=== PATIENT | male | born 1995 | race Caucasian/White ===

== ENCOUNTER 2024-07-15 14:15 | Emergency (ER) | payer BC, SELFPAY ==
[2024-07-15 14:32] VITALS: BP 162/95; PULSE 71; RESP 17; TEMP 36.4; O2SAT 99
--- NOTE | 2024-07-15 16:34 | ED.GENADULT ---
HPI - General Adult General Chief complaint: Anxiety Stated complaint: anxiety Time Seen by Provider: 07/15/24 15:00 History of Present Illness HPI narrative: This is a 28-year-old male presenting with chief complaint of anxiety. Patient did mushrooms several months ago. While he did then he had a panic attack. Since then he has continued to have recurrent panic attacks and has increased anxiety. He is okay during the day but is particularly bad at night when he tries to sleep. He has not seen a primary care physician and has appointment on August 23. No SI or HI. No other symptoms. Related Data Allergies Allergy/AdvReac Type Severity Reaction Status Date / Time No Known Allergies Allergy Verified 07/15/24 15:21 [facility] Social History Social History Substance use type: marijuana Exam Narrative: APPEARANCE: No apparent distress. Anxious appearing A&O x3 Head: atraumatic. EYES: EOMI, NOSE: Atraumatic NECK: Trachea midline RESPIRATORY: No increased rate of breathing clear to auscultation CARDIOVASCULAR: RRR, ABDOMINAL: Non-distended MUSCULOSKELETAl: No obvious deformities NEURO: Alert. Moving 4/4 extremities SKIN:: Warm, dry. Normal color PSYCHIATRIC: Anxious Course Vital Signs Vital signs: Vital Signs Temperature 97.6 F 07/15/24 14:32 Pulse Rate 71 07/15/24 14:32 Respiratory Rate 17 07/15/24 14:32 Blood Pressure 162/95 H 07/15/24 14:32 Pulse Oximetry 99 07/15/24 14:32 Oxygen Delivery Room Air 07/15/24 14:32 Temperature 97.6 F 07/15/24 14:32 Pulse Rate 71 07/15/24 14:32 Respiratory Rate 17 07/15/24 14:32 Blood Pressure 162/95 H 07/15/24 14:32 Pulse Oximetry 99 07/15/24 14:32 Oxygen Delivery Room Air 07/15/24 14:32 Medical Decision Making [facility] Narrative Medical decision making narrative: -Course: 28-year-old male presenting with recurrent panic attacks. Given 5 mg IM Valium. Discharged on hydroxyzine. Instructed follow-up with PCP and given hydroxyzine. Given resources at [facility]. -DDX includes but is not limited to: Anxiety, panic disorder, drug-induced anxiety -Interventions: 5 mg IM Valium -Shared decision making / Disposition: Discharge -RX hydroxyzine Vital Signs Vital Signs: Vital Signs Temperature 97.6 F 07/15/24 14:32 Pulse Rate 71 07/15/24 14:32 Respiratory Rate 17 07/15/24 14:32 Blood Pressure 162/95 H 07/15/24 14:32 Pulse Oximetry 99 07/15/24 14:32 Oxygen Delivery Room Air 07/15/24 14:32 Temperature 97.6 F 07/15/24 14:32 Pulse Rate 71 07/15/24 14:32 Respiratory Rate 17 07/15/24 14:32 Blood Pressure 162/95 H 07/15/24 14:32 Pulse Oximetry 99 07/15/24 14:32 Oxygen Delivery Room Air 07/15/24 14:32 Discharge Plan Discharge Clinical Impression: Acute anxiety, Panic disorder Patient Disposition: Home, Self-Care Condition: Stable Instructions: Antibiotic Form, Anxiety (ED) Additional Instructions: Please follow-up with your primary care physician. Please reach out to chest not mental health facility to try to arrange psychiatric follow-up. You can use hydroxyzine for anxiety and panic disorder. Please return if you develop thoughts of harming yourself or others. Prescriptions: New hydroxyzine HCl 50 mg tablet 50 mg PO BID Qty: 60 0RF Follow-up/Referrals: Valerie Randall MD [Primary Care Provider] - 1 Week (ED F/U - Anxiety w/ panic disorder)
[2024-07-15] MEDS: diazePAM INJ (*CRX) 10 MG/2 ML SYRINGE 5 MG IM (16:40)
== END 2024-07-15 16:57 | disposition home or self-care (01) ==
PROVIDERS: Emergency Provider Emergency Medicine; PCP Family Medicine
DX: F41.0 Panic disorder [episodic paroxysmal anxiety] (principal)
CPT/HCPCS: 96372; 99283; J3360

== ENCOUNTER 2024-10-22 11:02 | Inpatient (IN) | payer BC, SELFPAY ==
--- NOTE | ~2024-10-22 | CT_ITS ---
CLINICAL INDICATION: Abdominal pain COMPARISON: None. TECHNIQUE: Multiple contiguous axial images of the abdomen and pelvis were performed without the admi nistration of intravenous contrast The dose-length product (DLP) was 1371.77 mGy-cm. Automated exposure control and iterative reconstruction technique were employed. FINDINGS/OBSERVATIONS: Visualized lower thorax: The bilateral lung bases are clear. The heart is of normal size, without pericardial effusion. Liver: The liver demonstrates homogeneous attenuation and is not enlarged measuring 18 cm in longitudinal di mension. Gallbladder and biliary system: The gallbladder is only minimally distended, and otherwise unremarkable. Pancreas: Limited evaluation of the pancreas secondary to the lack of intravenous contrast. Spleen: The spleen demonstrates homogeneous attenuation and is not enlarged measuring 8 cm in longitudinal di mension. Kidneys: The bilateral kidneys are unremarkable, without hydronephrosis or renal calculi. Adrenal glands: Unremarkable. Gastrointestinal tract: Multiple diverticula in the rectosigmoid colon. Surrounding inflammatory change is also present. Multiple punctate foci of extraluminal air are identified suggesting a contained perforation. No drainable fluid collection is appreciated. Appendix: The air-filled appendix is of normal caliber (axial series, images 112-144). Vasculature: Unremarkable. Lymph nodes: No pathologically enlarged or morphologically suspicious lymph nodes within the retroperitoneum or at the root of the mesentery. Pelvic structures: The bladder is distended, and otherwise unremarkable. The prostate gland is not enlarged. The uterus is anteverted and anteflexed, and otherwise unremarkable. Body wall and musculoskeletal: No significant degenerative disease within the lower thoracic or lumbosacral spine. IMPRESSION: Contained perforation of the rectosigmoid colon from short segment diverticulitis. No drainable fluid collection. No gross, diffuse, free air. Reviewed, dictated and finalized at location A. H COUNSELOR IMPRESSION: Contained perforation of the rectosigmoid colon from short segment diverticulit is. No drainable fluid collection. No gross, diffuse, free air.
[2024-10-22 11:13] VITALS: BP 149/82; PULSE 86; RESP 16; TEMP 36.4; O2SAT 98
--- NOTE | 2024-10-22 13:27 | ED.ABDPAIN ---
HPI - Abdominal Pain General Chief Complaint: Abdominal Pain <Kena Vang PA-C - Last Filed: 10/24/24 09:11> Stated Complaint: abdominal pain <Kena Vang PA-C - Last Filed: 10/24/24 09:11> Time Seen by Provider: 10/22/24 13:27 <Kena Vang PA-C - Last Filed: 10/24/24 09:11> Focused HPI: Patient is a 28-year-old male who presents the ED with report of lower abdominal pain. Reports pain began yesterday, has been progressively worsening since then. Worse with movement and walking. Does report that he was performing strenuous activity a few days ago and may have injured himself in. Denies hernia bulge. Feels the urge to urinate, but states he has had no issues urinating. Denies dysuria or hematuria. Was nauseous earlier due to the pain, denies vomiting. Denies diarrhea, constipation, fevers. Has not taken anything for the pain today. Never had pain like this before. GENERAL: Mildly uncomfortable-appearing, obese with BMI of 38.4, and in no acute distress. HEAD: Normocephalic, atraumatic. CHEST: Clear to auscultation. ?No respiratory distress. HEART: Regular rate and rhythm.? ABD: Diffuse tenderness throughout lower abdomen. No rebound. Normoactive BS NEURO: ?Alert and oriented x3. Patient screened in triage and initial orders placed.? ?Additional care and disposition to be based upon?diagnostic testing and treatment. <Kena Vang PA-C - Last Filed: 10/24/24 09:11> Source: patient <Kena Vang PA-C - Last Filed: 10/24/24 09:11> Mode of arrival: ambulatory <ATA Bustamante Last Filed: 10/24/24 09:11> Limitations: no limitations <ATA Bustamante Last Filed: 10/24/24 09:11> History of Present Illness HPI narrative: Agree with HPI <Maico Mendieta MD - Last Filed: 10/24/24 21:13> Related Data Allergies/Adverse Reactions: Allergies Allergy/AdvReac Type Severity Reaction Status Date / Time No Known Allergies Allergy Verified 10/22/24 11:03 <Kena Vang PA-C - Last Filed: 10/24/24 09:11> Review of Systems Review of Systems: All systems reviewed & are unremarkable except as noted in HPI and below <Maico Mendieta MD - Last Filed: 10/24/24 21:13> Constitutional: Constitutional: Reports no additional constitutional complaints <Maico Mendieta MD - Last Filed: 10/24/24 21:13> ENT: Reports system reviewed and no additional complaints, except as documented <Maico Mendieta MD - Last Filed: 10/24/24 21:13> Cardiovascular: Cardiovascular: Reports no additional cardiovascular complaints <Maico Mendieta MD - Last Filed: 10/24/24 21:13> Respiratory: Respiratory: Reports no additional respiratory complaints <Maico Mendieta MD - Last Filed: 10/24/24 21:13> Gastrointestinal: Gastrointestinal: Reports no additional gastrointestinal complaints <Maico Mendieta MD - Last Filed: 10/24/24 21:13> Integumentary/Breasts: Skin/Breast: Reports system reviewed and no additional complaints, except as docu <Maico Mendieta MD - Last Filed: 10/24/24 21:13> [facility] Past Medical History Medical History: Medical History Vitamin D deficiency (~07/2024) Dyslipidemia (~07/2024) Anxiety and depression <Kena Vang PA-C - Last Filed: 10/24/24 09:11> Surgical History Surgical History: Surgical History [place] teeth extracted (~2017) History of placement of ear tubes (~2004) <Kena Vang PA-C - Last Filed: 10/24/24 09:11> Family History Family History: Family History Mother Depression Father Diabetes mellitus Hypertension Grandparent Depression Diverticulitis <Kena Vang PA-C - Last Filed: 10/24/24 09:11> Social History Social History: Social History Social History: caffeine 1 soda daily Smoking status: Never smoker Tobacco type: e-cigarettes/vaping Alcohol intake: current Drinks per week: 3 Substance use: current Substance use type: marijuana Do You Feel Safe in your Home?: Yes Lack of Transportation: YES Lack of Food: Never True Current Housing: I Have Housing Concerned About Future Housing: No Difficulty Paying Gas/Electric Bills: No Difficulty Paying for Meds: No Currently Unemployed: No Education: Associate Degree Difficulty w/ Childcare or Family Care: No Spiritual care concerns: No <Kena Vang PA-C - Last Filed: 10/24/24 09:11> Exam Narrative: GENERAL: Well-appearing, well-nourished, and in no acute distress. HEAD: Normocephalic, atraumatic. ENT: Mucous membranes moist. NECK: Supple. CHEST: Clear to auscultation. No respiratory distress. HEART: Regular rate and rhythm. Normal peripheral pulses. ABDOMEN: Soft, TTP LLQ with guarding, nondistended EXTREMITIES: Normal range of motion. No edema. SKIN: Warm, dry, no rash. NEURO: Alert and oriented x3. PSYCH: Normal mood and affect. <Maico Mendieta MD - Last Filed: 10/24/24 21:13> Course Course Emergency Course: admit to hospitalist for IV abx. General surgery consulted. <Maico Mendieta MD - Last Filed: 10/24/24 21:13> Vital Signs Vital signs: Vital Signs Temperature 97.6 F 10/22/24 11:13 Pulse Rate 86 10/22/24 11:13 Respiratory Rate 16 10/22/24 11:13 Blood Pressure 149/82 H 10/22/24 11:13 Pulse Oximetry 98 10/22/24 11:13 Oxygen Delivery Room Air 10/22/24 11:13 Temperature 98.6 F 10/24/24 14:00 Pulse Rate 85 10/24/24 14:00 Respiratory Rate 18 10/24/24 14:00 Blood Pressure 147/74 H 10/24/24 14:00 Pulse Oximetry 100 10/24/24 14:00 Oxygen Delivery Room Air 10/24/24 08:00 <Kena Vang PA-C - Last Filed: 10/24/24 09:11> Vital Signs Temperature 97.6 F 10/22/24 11:13 Pulse Rate 86 10/22/24 11:13 Respiratory Rate 16 10/22/24 11:13 Blood Pressure 149/82 H 10/22/24 11:13 Pulse Oximetry 98 10/22/24 11:13 Oxygen Delivery Room Air 10/22/24 11:13 Temperature 98.6 F 10/24/24 14:00 Pulse Rate 85 10/24/24 14:00 Respiratory Rate 18 10/24/24 14:00 Blood Pressure 147/74 H 10/24/24 14:00 Pulse Oximetry 100 10/24/24 14:00 Oxygen Delivery Room Air 10/24/24 08:00 <Maico Mendieta MD - Last Filed: 10/24/24 21:13> MDM - Abdominal Pain MDM Narrative Medical decision making narrative: MSE by ERIN in triage. <Kena Vang PA-C - Last Filed: 10/24/24 09:11> Lab Data Result diagrams: 10/24/24 07:09 10/24/24 07:09 <ATA Bustamante Last Filed: 10/24/24 09:11> Labs: Lab Results 10/22/24 10/22/24 10/22/24 Range/Units 13:53 14:18 14:28 WBC 16.2 H (4.5-10.0) K/mm3 RBC 5.37 (4.6-6.20) M/mm3 Hgb 15.2 (14.0-18.0) g/dL Hct 47.1 (42.0-52.0) % MCV 87.7 (80-100) fl MCH 28.3 (26-34) pg MCHC 32.3 (32-36) g/dl RDW 13.5 (11.5-14.5) % Plt Count 272 (150-375) k/mm3 MPV 10.9 H (7.4-10.4) fl Immature Gran % (Auto) 0.3 (0-0.5) % Neut % (Auto) 75.1 H (45.5-73.1) % Lymph % (Auto) 13.2 L (18.3-44.2) % [place] % (Auto) 10.7 H (2.6-8.5) % Eos % (Auto) 0.4 (0-4.4) % Baso % (Auto) 0.3 (0.2-1.2) % Lymph # (Auto) 2.14 (0.9-3.2) K/mm3 [place] # (Auto) 1.7 H (0.1-0.6) K/mm3 Eos # (Auto) 0.1 (0-0.3) K/mm3 Baso # (Auto) 0.1 (0.0-0.1) K/mm3 Abs Immat Gran (auto) 0.05 H (0.00-0.031) K/mm3 Absolute Neuts (auto) 12.2 H (1.3-6.7) K/mm3 Absolute Nucleated RBC 0.000 (0.0-0.012) K/mm3 Nucleated RBC % 0.0 (0.0-0.2) % Sodium 138 (137-145) mmol/L Potassium 4.4 (3.4-5.0) mmol/L Chloride 104 (98-107) mmol/L Carbon Dioxide 29 (22-30) mmol/L Anion Gap 5 (4-12) mmol/L BUN 12 (9-20) mg/dL Creatinine 0.90 0.90 (0.7-1.3) mg/dL Estim Creat Clear Calc 138 138 ml/min Estimated GFR > 60 > 60 (59 - ) Glucose 90 (65-110) mg/dL Lactic Acid (0.7-2.0) mmol/L Calcium 9.2 (8.4-10.2) mg/dL Total Bilirubin 0.5 (0.2-1.3) mg/dL AST 26 (17-59) U/L ALT 28 (6-50) U/L Alkaline Phosphatase 137 H (38-126) U/L Total Protein 8.0 (6.3-8.2) g/dL Albumin 4.6 (3.5-5.1) g/dL Lipase 73 (23-300) U/L Urine Color Yellow (Yellow) Urine Appearance Clear (Clear) Urine pH 5.5 (5.0-9.0) Ur Specific [place] > 1.045 H (1.001-1.035) Urine Protein Negative (Negative) mg/dL Urine Glucose (UA) Negative (Negative) mg/dL Urine Ketones Negative (Negative) mg/dL Ur Blood (Man) Negative (Negative) Urine Nitrate Negative (Negative) Urine Bilirubin Negative (Negative) Urine Urobilinogen 0.2 (<2.0) mg/dL Leukocyte Esterase Rfl Negative (Negative) RM/UL 10/22/24 Range/Units 18:16 WBC (4.5-10.0) K/mm3 RBC (4.6-6.20) M/mm3 Hgb (14.0-18.0) g/dL Hct (42.0-52.0) % MCV (80-100) fl MCH (26-34) pg MCHC (32-36) g/dl RDW (11.5-14.5) % Plt Count (150-375) k/mm3 MPV (7.4-10.4) fl Immature Gran % (Auto) (0-0.5) % Neut % (Auto) (45.5-73.1) % Lymph % (Auto) (18.3-44.2) % [place] % (Auto) (2.6-8.5) % Eos % (Auto) (0-4.4) % Baso % (Auto) (0.2-1.2) % Lymph # (Auto) (0.9-3.2) K/mm3 [place] # (Auto) (0.1-0.6) K/mm3 Eos # (Auto) (0-0.3) K/mm3 Baso # (Auto) (0.0-0.1) K/mm3 Abs Immat Gran (auto) (0.00-0.031) K/mm3 Absolute Neuts (auto) (1.3-6.7) K/mm3 Absolute Nucleated RBC (0.0-0.012) K/mm3 Nucleated RBC % (0.0-0.2) % Sodium (137-145) mmol/L Potassium (3.4-5.0) mmol/L Chloride (98-107) mmol/L Carbon Dioxide (22-30) mmol/L Anion Gap (4-12) mmol/L BUN (9-20) mg/dL Creatinine (0.7-1.3) mg/dL Estim Creat Clear Calc ml/min Estimated GFR (59 - ) Glucose (65-110) mg/dL Lactic Acid 1.3 (0.7-2.0) mmol/L Calcium (8.4-10.2) mg/dL Total Bilirubin (0.2-1.3) mg/dL AST (17-59) U/L ALT (6-50) U/L Alkaline Phosphatase (38-126) U/L Total Protein (6.3-8.2) g/dL Albumin (3.5-5.1) g/dL Lipase (23-300) U/L Urine Color (Yellow) Urine Appearance (Clear) Urine pH (5.0-9.0) Ur Specific [place] (1.001-1.035) Urine Protein (Negative) mg/dL Urine Glucose (UA) (Negative) mg/dL Urine Ketones (Negative) mg/dL Ur Blood (Man) (Negative) Urine Nitrate (Negative) Urine Bilirubin (Negative) Urine Urobilinogen (<2.0) mg/dL Leukocyte Esterase Rfl (Negative) RM/UL <Kena Vang PA-C - Last Filed: 10/24/24 09:11> Lab Results 10/22/24 10/22/24 10/22/24 Range/Units 13:53 14:18 14:28 WBC 16.2 H (4.5-10.0) K/mm3 RBC 5.37 (4.6-6.20) M/mm3 Hgb 15.2 (14.0-18.0) g/dL Hct 47.1 (42.0-52.0) % MCV 87.7 (80-100) fl MCH 28.3 (26-34) pg MCHC 32.3 (32-36) g/dl RDW 13.5 (11.5-14.5) % Plt Count 272 (150-375) k/mm3 MPV 10.9 H (7.4-10.4) fl Immature Gran % (Auto) 0.3 (0-0.5) % Neut % (Auto) 75.1 H (45.5-73.1) % Lymph % (Auto) 13.2 L (18.3-44.2) % [place] % (Auto) 10.7 H (2.6-8.5) % Eos % (Auto) 0.4 (0-4.4) % Baso % (Auto) 0.3 (0.2-1.2) % Lymph # (Auto) 2.14 (0.9-3.2) K/mm3 [place] # (Auto) 1.7 H (0.1-0.6) K/mm3 Eos # (Auto) 0.1 (0-0.3) K/mm3 Baso # (Auto) 0.1 (0.0-0.1) K/mm3 Abs Immat Gran (auto) 0.05 H (0.00-0.031) K/mm3 Absolute Neuts (auto) 12.2 H (1.3-6.7) K/mm3 Absolute Nucleated RBC 0.000 (0.0-0.012) K/mm3 Nucleated RBC % 0.0 (0.0-0.2) % Sodium 138 (137-145) mmol/L Potassium 4.4 (3.4-5.0) mmol/L Chloride 104 (98-107) mmol/L Carbon Dioxide 29 (22-30) mmol/L Anion Gap 5 (4-12) mmol/L BUN 12 (9-20) mg/dL Creatinine 0.90 0.90 (0.7-1.3) mg/dL Estim Creat Clear Calc 138 138 ml/min Estimated GFR > 60 > 60 (59 - ) Glucose 90 (65-110) mg/dL Lactic Acid (0.7-2.0) mmol/L Calcium 9.2 (8.4-10.2) mg/dL Total Bilirubin 0.5 (0.2-1.3) mg/dL AST 26 (17-59) U/L ALT 28 (6-50) U/L Alkaline Phosphatase 137 H (38-126) U/L Total Protein 8.0 (6.3-8.2) g/dL Albumin 4.6 (3.5-5.1) g/dL Lipase 73 (23-300) U/L Urine Color Yellow (Yellow) Urine Appearance Clear (Clear) Urine pH 5.5 (5.0-9.0) Ur Specific [place] > 1.045 H (1.001-1.035) Urine Protein Negative (Negative) mg/dL Urine Glucose (UA) Negative (Negative) mg/dL Urine Ketones Negative (Negative) mg/dL Ur Blood (Man) Negative (Negative) Urine Nitrate Negative (Negative) Urine Bilirubin Negative (Negative) Urine Urobilinogen 0.2 (<2.0) mg/dL Leukocyte Esterase Rfl Negative (Negative) RM/UL 12/30/24 Range/Units 18:16 WBC (4.5-10.0) K/mm3 RBC (4.6-6.20) M/mm3 Hgb (14.0-18.0) g/dL Hct (42.0-52.0) % MCV (80-100) fl MCH (26-34) pg MCHC (32-36) g/dl RDW (11.5-14.5) % Plt Count (150-375) k/mm3 MPV (7.4-10.4) fl Immature Gran % (Auto) (0-0.5) % Neut % (Auto) (45.5-73.1) % Lymph % (Auto) (18.3-44.2) % [place] % (Auto) (2.6-8.5) % Eos % (Auto) (0-4.4) % Baso % (Auto) (0.2-1.2) % Lymph # (Auto) (0.9-3.2) K/mm3 [place] # (Auto) (0.1-0.6) K/mm3 Eos # (Auto) (0-0.3) K/mm3 Baso # (Auto) (0.0-0.1) K/mm3 Abs Immat Gran (auto) (0.00-0.031) K/mm3 Absolute Neuts (auto) (1.3-6.7) K/mm3 Absolute Nucleated RBC (0.0-0.012) K/mm3 Nucleated RBC % (0.0-0.2) % Sodium (137-145) mmol/L Potassium (3.4-5.0) mmol/L Chloride (98-107) mmol/L Carbon Dioxide (22-30) mmol/L Anion Gap (4-12) mmol/L BUN (9-20) mg/dL Creatinine (0.7-1.3) mg/dL Estim Creat Clear Calc ml/min Estimated GFR (59 - ) Glucose (65-110) mg/dL Lactic Acid 1.3 (0.7-2.0) mmol/L Calcium (8.4-10.2) mg/dL Total Bilirubin (0.2-1.3) mg/dL AST (17-59) U/L ALT (6-50) U/L Alkaline Phosphatase (38-126) U/L Total Protein (6.3-8.2) g/dL Albumin (3.5-5.1) g/dL Lipase (23-300) U/L Urine Color (Yellow) Urine Appearance (Clear) Urine pH (5.0-9.0) Ur Specific [place] (1.001-1.035) Urine Protein (Negative) mg/dL Urine Glucose (UA) (Negative) mg/dL Urine Ketones (Negative) mg/dL Ur Blood (Man) (Negative) Urine Nitrate (Negative) Urine Bilirubin (Negative) Urine Urobilinogen (<2.0) mg/dL Leukocyte Esterase Rfl (Negative) RM/UL <Maico Mendieta MD - Last Filed: 10/24/24 21:13> Imaging Data Radiologist's impression: ITS Impressions Abdomen/Pelvis CT 10/22/24 14:27 IMPRESSION: Contained perforation of the rectosigmoid colon from short segment diverticulitis. No drainable fluid collection. No gross, diffuse, free air. <Kena Vang PA-C - Last Filed: 10/24/24 09:11> ITS Impressions Abdomen/Pelvis CT 10/22/24 14:27 IMPRESSION: Contained perforation of the rectosigmoid colon from short segment diverticulitis. No drainable fluid collection. No gross, diffuse, free air. <Maico Mendieta MD - Last Filed: 10/24/24 21:13> Discharge Plan Discharge Clinical Impression: Perforation of sigmoid colon due to diverticulitis <Kena Vang PA-C - Last Filed: 10/24/24 09:11> Patient Disposition: Still a Patient <ATA Bustamante Last Filed: 10/24/24 09:11> Condition: Stable <ATA Bustamante Last Filed: 10/24/24 09:11>
[2024-10-22] MEDS: HYDROcodone/acetaminophen (*CRX) 5-325 MG TABLET 1 TAB PO (13:54)
[2024-10-22 14:03] LABS: Basophils Absolute Auto 0.1 K/mm3 (0.0-0.1); Basophils Percent Auto 0.3 % (0.2-1.2); Eosinophils Absolute Auto 0.1 K/mm3 (0-0.3); Eosinophils Percent Auto 0.4 % (0-4.4); Hematocrit 47.1 % (42.0-52.0); Hemoglobin 15.2 g/dL (14.0-18.0); Immature Granulocyte Absolute 0.05 K/mm3 (0.00-0.031); Immature Granulocyte Percent A 0.3 % (0-0.5); Lymphocytes Absolute Auto 2.14 K/mm3 (0.9-3.2); Lymphocytes Percent Auto 13.2 % (18.3-44.2); Mean Corpuscular HGB Conc 32.3 g/dl (32-36); Mean Corpuscular Hemoglobin 28.3 pg (26-34); Mean Corpuscular Volume 87.7 fl (80-100); Mean Platelet Volume 10.9 fl (7.4-10.4); Monocytes Absolute Auto 1.7 K/mm3 (0.1-0.6); Monocytes Percent Auto 10.7 % (2.6-8.5); Neutrophils Absolute Auto 12.2 K/mm3 (1.3-6.7); Neutrophils Percent Auto 75.1 % (45.5-73.1); Platelet Count Result 272 k/mm3 (150-375); Red Blood Count 5.37 M/mm3 (4.6-6.20); Red Cell Distribution Width 13.5 % (11.5-14.5); White Blood Count 16.2 K/mm3 (4.5-10.0)
[2024-10-22 14:12] LABS: Alanine Aminotransferase 28 U/L (6-50); Albumin Level 4.6 g/dL (3.5-5.1); Alkaline Phosphatase 137 U/L (38-126); Anion Gap 5 mmol/L (4-12); Aspartate Amino Transferase 26 U/L (17-59); Bilirubin,Total 0.5 mg/dL (0.2-1.3); Blood Urea Nitrogen 12 mg/dL (9-20); Calcium 9.2 mg/dL (8.4-10.2); Carbon Dioxide 29 mmol/L (22-30); Chloride 104 mmol/L (98-107); Estimated CRCL calculation 138 ml/min; Estimated Glomerular Filt Rate > 60; Glucose 90 mg/dL (65-110); Lipase 73 U/L (23-300); Potassium 4.4 mmol/L (3.4-5.0); Sodium 138 mmol/L (137-145)
[2024-10-22 14:19] LABS: Estimated CRCL calculation 138 ml/min; Estimated Glomerular Filt Rate > 60
[2024-10-22 14:26] VITALS: BP 152/93; PULSE 78; RESP 20; TEMP 36.6; O2SAT 100
[2024-10-22 14:36] LABS: Add Urine Microscopic? NO; Appearance Urine Clear (Clear); Bilirubin Urine Negative (Negative); Blood Urine Negative (Negative); Color Urine Yellow (Yellow); Glucose Urine UA Negative (Negative); Ketones Urine Negative (Negative); Leukocyte Esterase Ur Negative LEU/UL (Negative); Nitrate Urine Negative (Negative); Protein Urine Negative (Negative); Specific Grav Ur > 1.045 (1.001-1.035); Urobilinogen Urine 0.2 mg/dL (<2.0); pH Urine 5.5 (5.0-9.0)
[2024-10-22] MEDS: MORPHINE SULFATE (*CRX) 4 MG/ML INJ IV PUSH ×2 (16:37→19:42)
--- NOTE | 2024-10-22 17:14 | P.HP_ITS ---
H&P: HPI History of Present Illness Date/Time: 10/22/24 17:14 Chief Complaint: Abdominal pain Narrative: 28-year-old male with past medical history of dyslipidemia presents the hospital with acute abdominal pain. Patient states that the acute abdominal pain started yesterday he never felt like that before. He states that he was helping his father lift heavy things and thought that he strained a muscle. Today when the pain did not get better he decided to go to urgent care. His girlfriend told him to go to the hospital in case they may needed to scan him or do procedure. Patient denies nausea or vomiting however he states that he has a chronic problem with constipation often strains having several small hard bowel movements a day. In the ED the patient leukocytosis of 16.2, and alkaline phosphate at 137. UA is normal. CT of the abdomen shows Contained perforation of the rectosigmoid colon from short segment diverticulitis. No drainable fluid collection. No gross, diffuse, free air. Review of Systems Review of Systems: 12 systems were reviewed and are negativ e except for as per HPI. [facility] Past Medical History Medical History Vitamin D deficiency (~07/2024) Dyslipidemia (~07/2024) Anxiety and depression Surgical History Surgical History [place] teeth extracted (~2017) History of placement of ear tubes (~2004) Family History Family History Mother Depression Father Diabetes mellitus Hypertension Grandparent Depression Social History Social History Social History: caffeine 1 soda daily Smoking status: Never smoker Tobacco type: e-cigarettes/vaping Alcohol intake: current Drinks per week: 3 Substance use: current Substance use type: marijuana Do You Feel Safe in your Home?: Yes Lack of Transportation: YES Lack of Food: Never True Current Housing: I Have Housing Concerned About Future Housing: No Difficulty Paying Gas/Electric Bills: No Difficulty Paying for Meds: No Currently Unemployed: No Education: Associate Degree Difficulty w/ Childcare or Family Care: No Spiritual care concerns: No Meds Home Medications and Allergies Home Medications ?Medication ?Instructions ?Recorded ?Confirmed ?Type hydroxyzine HCl 25 mg tablet 25 mg PO TID PRN anxiety #90 tabs 08/14/24 10/22/24 Rx atorvastatin 20 mg tablet (Lipitor) 20 mg PO QHS #90 tabs 08/16/24 10/22/24 Rx ergocalciferol (vitamin D2) 1,250 1,250 mcg PO WEEKLY #12 caps 08/16/24 10/22/24 Rx mcg (50,000 unit) capsule fluoxetine 20 mg capsule 20 mg PO DAILY #90 caps 10/02/24 10/22/24 Rx Allergies Allergy/AdvReac Type Severity Reaction Status Date / Time No Known Allergies Allergy Verified 10/22/24 11:03 Vital Signs Vital Signs - 24 hr 10/22/24 11:13 10/22/24 14:26 Temperature 97.6 F 97.8 F Pulse Rate 86 78 Respiratory Rate 16 20 Blood Pressure 149/82 H 152/93 H Pulse Oximetry 98 100 Oxygen Delivery Room Air Exam Narrative: General: well appearing, appears stated age. HEENT: normocephalic, atraumatic. Mucous membranes moist. EOMI, PERRLA, bilateral sclera anicteric, no conjunctival injection. Neck supple without JVD, lymphadenopathy, or bruit. Respiratory: clear to ascultation bilaterally. No rales/rhonic/wheezes. Cardiovascular: Regular rate and rhythm, normal S1-S2 upon ascultation. No murmurs, rubs, or clicks. PMI is nondisplaced, capillary refill less than 3 second. Abdomen: Soft, round, no pulsatile masses, nondistended and mild tenderness to touch. No rebound, no guarding. No CVA tenderness, no hepatosplenomegaly. Bowel sounds present to all four quadrants. No high pitch or tinkling sounds, resonant to percussion. Extremities: No cyanosis, clubbing, or edema present. Pulses are palpable 2/2. Active ROM to all four extremities. Neuro: Alert and orientated x 4. PERRLA. Cranial nerves 2-12 intact without focal deficit. Skin: Warm, dry, and intact, without rash, erythema, or lesion. Psych: pleasant, cooperative, normal speech, normal affect, no hallucinations, no dysarthia H&P: Results Labs Labs: Short CBC 10/22/24 Range/Units 13:53 WBC 16.2 H (4.5-10.0) K/mm3 Hgb 15.2 (14.0-18.0) g/dL Hct 47.1 (42.0-52.0) % Plt Count 272 (150-375) k/mm3 BMP 10/22/24 10/22/24 13:53 14:18 Sodium 138 Potassium 4.4 Chloride 104 Carbon Dioxide 29 BUN 12 Creatinine 0.90 0.90 Glucose 90 Calcium 9.2 Liver Function 10/22/24 Range/Units 13:53 Total Bilirubin 0.5 (0.2-1.3) mg/dL AST 26 (17-59) U/L ALT 28 (6-50) U/L Alkaline Phosphatase 137 H (38-126) U/L Albumin 4.6 (3.5-5.1) g/dL Urine 10/22/24 Range/Units 14:28 Urine Color Yellow (Yellow) Urine Appearance Clear (Clear) Urine pH 5.5 (5.0-9.0) Ur Specific [place] > 1.045 H (1.001-1.035) Urine Protein Negative (Negative) mg/dL Urine Glucose (UA) Negative (Negative) mg/dL Assessment and Plan Assessment and plan (1) Diverticulosis: Code(s): K57.90 - Diverticulosis of intestine, part unspecified, without perforation or abscess without bleeding Status: Acute Assessment and Plan: CT of the abdomen shows Contained perforation of the rectosigmoid colon from short segment diverticulitis. Surgery consulted plan for medical management No drainable fluid collection. IV Zosyn (2) Constipation: Code(s): K59.00 - Constipation, unspecified Status: Acute Assessment and Plan: Avoid straining Bowel protocol Patient will need to take daily stool softeners and possibly daily laxatives to keep bowel movements are regular Quality VTE Prophylaxis VTE prophylaxis: mechanical ordered Hospitalist MIPS Advance Care Plan I have confirmed that the patient's Advanced Care Plan is present, code status is documented, or surrogate decision maker is listed in patient medical record.: Yes Medication Reconciliation I have utilized all available resources to obtain, update and review the patients current medications (includes all prescriptions, OTC, herbals, cannabis, and nutritional supplements).: Yes
[2024-10-22] MEDS: PIPERACILLN/TAZ 3.375GM/NS50ML 3.375 GM/50 ML BAG IVPB ×2 (18:17→23:05)
[2024-10-22 18:57] LABS: Lactic Acid Reflex 1.3 mmol/L (0.7-2.0)
[2024-10-22 19:27] VITALS: BMI 38.4
--- NOTE | 2024-10-22 19:36 | ADMGEN ---
This patient, Flakito Olivo, was admitted to [facility] Surg Room 328-01. Patient/family oriented to hospital policies and general routines including ID bracelet, bed and alarms, visiting hours, pain management, procedures, bathroom and other care routines, personal items, smoking policy, room service/diet, and visiting hours. Information on how to activate the Rapid Response Team has been discussed. Patient/Family are encouraged to report perceived risks to care and to ask questions if they do not understand what they are told or what they should do.
[2024-10-22] MEDS: ONDANSETRON INJ 4 MG/2 ML VIAL IV PUSH (19:43)
[2024-10-22 20:49] VITALS: BP 140/84; PULSE 81; RESP 18; TEMP 36.9; O2SAT 98
[2024-10-23] MEDS: HYDROcodone/acetaminophen (*CRX) 5-325 MG TABLET 1 TAB PO ×2 (03:07→12:17)
[2024-10-23] MEDS: PIPERACILLN/TAZ 3.375GM/NS50ML 3.375 GM/50 ML BAG IVPB ×4 (05:10→23:49)
[2024-10-23 06:00] VITALS: BP 130/76; PULSE 89; RESP 16; TEMP 37.7; O2SAT 98
[2024-10-23] MEDS: FLUoxetine HCL 20 MG CAPSULE PO (08:43)
[2024-10-23] MEDS: SENNA/DOCUSATE SODIUM TABLET 1 TAB PO (08:43)
--- NOTE | 2024-10-23 08:43 | P.PNIM_ITS ---
Progress Note: A&P Assessment and Plan (1) Diverticulosis: Code(s): K57.90 - Diverticulosis of intestine, part unspecified, without perforation or abscess without bleeding Status: Acute Assessment and Plan: - Blood cultures obtained on 10/22: pending - CT Abdomen/pelvis: Contained perforation of the rectosigmoid colon from short segment diverticulitis. No drainable fluid collection. No gross, diffuse, free air. - Diet: clear liquid - Antibiotics: Zosyn started on 10/22 - Antiemetics - Analgesics - Monitor vital signs, I&Os, track stool output, watch for bloody stools, neuro status and patient is a fall risk - Monitor serum electrolytes and CBC - Surgery consulted, appreciate recommendations continue IV antibiotics and clear liquids for now. (2) Anxiety and depression: Code(s): F41.9 - Anxiety disorder, unspecified; F32.A - Depression, unspecified Status: Acute Assessment and Plan: Chronic, continue home medications - fluoxetine 20 mg daily - hydroxyzine 25 mg TID PRN (3) Dyslipidemia: Onset Date: ~07/2024 Code(s): E78.5 - Hyperlipidemia, unspecified Status: Acute Assessment and Plan: Chronic, continue home medication - atorvastatin 20 mg daily (4) Obesity (BMI 30-39.9): Code(s): E66.9 - Obesity, unspecified Status: Acute Assessment and Plan: Recommended lifestyle changes and dietary modifications Time Spent With Patient Time with patient: 25 - 35 minutes Subjective Date/time seen: 10/23/24 08:43 Interval history: 28 year old male with past medical history of depression/anxiety presents to the hospital for abdominal pain. Patient is pleasant lying in bed with family at bedside. He has had two episodes of diarrhea today. Denies bloody stool. Patient is tolerating his clear liquid diet well denying increased abdominal pain, nausea/vomiting. He has no other complaints denying chest pain, shortness of breath, and palpiations. Review of Systems Review of Systems: 12 systems were reviewed and are negativ e except for as per HPI. All systems reviewed & are unremarkable except as noted in HPI and below Exam Narrative: AF HR 89 RR 16 Spo2 98 BP 130/76 General: male in no acute respiratory distress who is nontoxic appearing, lying semi recumbent in bed. HEENT: Normocephalic. Atraumatic. Extraocular movement intact. Sclera clear and anicteric. No facial asymmetry. Chest: Lungs are clear to auscultation bilaterally. No wheezes or crackles. CV: Heart was regular rate and rhythm. S1/S2. No murmurs, gallops, or rubs. Abd: Abdomen was soft. Tender LLQ. Nondistended. Positive bowel sounds. No organomegaly or masses. Objective Data Vital Signs Vital Signs: Vital Signs - 24 hr 10/22/24 11:13 10/22/24 14:26 10/22/24 20:00 Temperature 97.6 F 97.8 F Pulse Rate 86 78 Respiratory Rate 16 20 Blood Pressure 149/82 H 152/93 H Pulse Oximetry 98 100 Oxygen Delivery Room Air Room Air 10/22/24 20:49 10/23/24 06:00 Temperature 98.5 F 99.8 F H Pulse Rate 81 89 Respiratory Rate 18 16 Blood Pressure 140/84 130/76 Pulse Oximetry 98 98 Oxygen Delivery Intake/Output Intake/Output: Intake & Output 10/20/24 10/21/24 10/22/24 10/23/24 23:59 23:59 23:59 23:59 Intake Total 700 50 Balance 700 50 Meds/Results Medications: Active Medications Generic Name Dose Route Start Last Admin Trade Name Freq PRN Reason Stop Dose Admin Acetaminophen 650 mg 10/22/24 16:57 Acetaminophen 325 Mg Tablet PO Q4H PRN Mild Pain (1-3) or Fever Hydrocodone Bitart/Acetaminophen 1 tab 10/22/24 16:57 10/23/24 03:07 Hydrocodone/Acetaminophen (*Crx) 5-325 Mg Tablet PO 1 tab Q4H PRN Administration Pain Rated 4-6 Atorvastatin Calcium 20 mg 10/23/24 21:00 Atorvastatin 20 Mg Tablet PO QHS ZARIA Fluoxetine HCl 20 mg 10/23/24 09:00 Fluoxetine Hcl 20 Mg Capsule PO DAILY ZARIA Hydroxyzine HCl 25 mg 10/22/24 22:40 Hydroxyzine Hcl 25 Mg Tablet PO TID PRN anxiety Piperacillin/Tazobactam/Dextrose 3.375 gm in 50 mls @ 100 mls/hr 10/23/24 00:00 10/23/24 05:40 Zosyn 3.375 Gm/Ns 50 Ml IVPB Infused Q6H [facility] Infusion Morphine Sulfate 4 mg 10/22/24 16:57 10/22/24 19:42 Morphine Sulfate (*Crx) 4 Mg/Ml Inj IV PUSH 4 mg Q2H PRN Administration Pain Rated 7-10 Ondansetron HCl 4 mg 10/22/24 16:57 10/22/24 19:43 Ondansetron Inj 4 Mg/2 Ml Vial IV PUSH 4 mg Q4H PRN Administration Nausea Polyethylene Glycol 17 gm 10/23/24 09:00 Polyethylene Glycol 3350 17 Gm Powd.Pack PO QAM ZARIA Senna/Docusate Sodium 1 tab 10/23/24 09:00 Senna/Docusate Sodium Tablet PO Q12HR [facility] Radiology Results: ITS Impressions Abdomen/Pelvis CT 10/22/24 14:27 IMPRESSION: Contained perforation of the rectosigmoid colon from short segment diverticulitis. No drainable fluid collection. No gross, diffuse, free air. Labs Labs: Laboratory Results - last 24 hr 10/22/24 10/22/24 10/22/24 13:53 14:18 14:28 WBC 16.2 H RBC 5.37 Hgb 15.2 Hct 47.1 MCV 87.7 MCH 28.3 MCHC 32.3 RDW 13.5 Plt Count 272 MPV 10.9 H Immature Gran % (Auto) 0.3 Neut % (Auto) 75.1 H Lymph % (Auto) 13.2 L [place] % (Auto) 10.7 H Eos % (Auto) 0.4 Baso % (Auto) 0.3 Lymph # (Auto) 2.14 [place] # (Auto) 1.7 H Eos # (Auto) 0.1 Baso # (Auto) 0.1 Abs Immat Gran (auto) 0.05 H Absolute Neuts (auto) 12.2 H Absolute Nucleated RBC 0.000 Nucleated RBC % 0.0 Sodium 138 Potassium 4.4 Chloride 104 Carbon Dioxide 29 Anion Gap 5 BUN 12 Creatinine 0.90 0.90 Estim Creat Clear Calc 138 138 Estimated GFR > 60 > 60 Glucose 90 Lactic Acid Calcium 9.2 Total Bilirubin 0.5 AST 26 ALT 28 Alkaline Phosphatase 137 H Total Protein 8.0 Albumin 4.6 Lipase 73 Urine Color Yellow Urine Appearance Clear Urine pH 5.5 Ur Specific [place] > 1.045 H Urine Protein Negative Urine Glucose (UA) Negative Urine Ketones Negative Ur Blood (Man) Negative Urine Nitrate Negative Urine Bilirubin Negative Urine Urobilinogen 0.2 Leukocyte Esterase Rfl Negative 10/22/24 18:16 WBC RBC Hgb Hct MCV MCH MCHC RDW Plt Count MPV Immature Gran % (Auto) Neut % (Auto) Lymph % (Auto) [place] % (Auto) Eos % (Auto) Baso % (Auto) Lymph # (Auto) [place] # (Auto) Eos # (Auto) Baso # (Auto) Abs Immat Gran (auto) Absolute Neuts (auto) Absolute Nucleated RBC Nucleated RBC % Sodium Potassium Chloride Carbon Dioxide Anion Gap BUN Creatinine Estim Creat Clear Calc Estimated GFR Glucose Lactic Acid 1.3 Calcium Total Bilirubin AST ALT Alkaline Phosphatase Total Protein Albumin Lipase Urine Color Urine Appearance Urine pH Ur Specific [place] Urine Protein Urine Glucose (UA) Urine Ketones Ur Blood (Man) Urine Nitrate Urine Bilirubin Urine Urobilinogen Leukocyte Esterase Rfl Quality VTE Prophylaxis VTE prophylaxis: mechanical ordered
[2024-10-23] MEDS: polyethylene glycoL 3350 17 GM POWD.PACK PO (08:44)
[2024-10-23] MEDS: MORPHINE SULFATE (*CRX) 4 MG/ML INJ IV PUSH ×4 (09:02→20:59)
--- NOTE | 2024-10-23 09:09 | P.CONGS_ITS ---
Assessment and Plan Assessment and plan (1) Perforation of sigmoid colon due to diverticulitis: Code(s): K57.20 - Diverticulitis of large intestine with perforation and abscess without bleeding Status: Acute Assessment and Plan: * CT evidence of sigmoid diverticulitis with microperforation, no abscess. His abdominal pain is currently controlled with analgesics. No diffuse peritoneal signs on exam. No indication for urgent surgical intervention. We would recommend to continue IV antibiotics and clear liquids for now. Labs pending for today, will follow. I will also consult the dietitian for education as this is his first episode of diverticulitis. (2) Obesity (BMI 30-39.9): Code(s): E66.9 - Obesity, unspecified Status: Acute Assessment and Plan: * Recommended lifestyle changes and dietary modifications Plan I have discussed the patient's case and plan of care with Dr. Corrigan. Thank you for allowing us to see the patient in consultation and we will continue to follow along with you. History of Present Illness Consult details Consult date: 10/23/24 Reason for consult: other (Diverticulitis with micro perforation) Requesting physician: Maico Mendieta MD Narrative: This is a 28-year-old man who we have been asked to see in surgical consultation for diverticulitis. He developed suprapubic pain that radiated into his scrotum 2 days ago. The pain progressively got worse. He reports associated chills. He came into the ED due to his progressive pain. Vital signs were stable and he was afebrile in the ED. [place] [id number] [place] scan of the abdomen and pelvis showed sigmoid diverticulitis with micro perforation. He was admitted to the hospitalist and started on IV Zosyn. He is currently on clear liquids. He reports having an episode of diarrhea this morning. Denies any previous episodes of diverticulitis. No previous abdominal surgeries. No previous colonoscopy. Review of Systems 2 Review of Systems: All systems reviewed & are unremarkable except as noted in HPI and below PMFSH Past Medical History Medical History Vitamin D deficiency (~07/2024) Dyslipidemia (~07/2024) Anxiety and depression Surgical History Surgical History [place] teeth extracted (~2017) History of placement of ear tubes (~2004) Family History Family History Mother Depression Father Diabetes mellitus Hypertension Grandparent Depression Diverticulitis Social History Social History Social History: caffeine 1 soda daily Smoking status: Never smoker Tobacco type: e-cigarettes/vaping Alcohol intake: current Drinks per week: 3 Substance use: current Substance use type: marijuana Do You Feel Safe in your Home?: Yes Lack of Transportation: YES Lack of Food: Never True Current Housing: I Have Housing Concerned About Future Housing: No Difficulty Paying Gas/Electric Bills: No Difficulty Paying for Meds: No Currently Unemployed: No Education: Associate Degree Difficulty w/ Childcare or Family Care: No Spiritual care concerns: No Meds Home Medications and Allergies Home Medications ?Medication ?Instructions ?Recorded ?Confirmed ?Type hydroxyzine HCl 25 mg tablet 25 mg PO TID PRN anxiety #90 tabs 08/14/24 10/22/24 Rx atorvastatin 20 mg tablet (Lipitor) 20 mg PO QHS #90 tabs 08/16/24 10/22/24 Rx ergocalciferol (vitamin D2) 1,250 1,250 mcg PO WEEKLY #12 caps 08/16/24 10/22/24 Rx mcg (50,000 unit) capsule fluoxetine 20 mg capsule 20 mg PO DAILY #90 caps 10/02/24 10/22/24 Rx Allergies Allergy/AdvReac Type Severity Reaction Status Date / Time No Known Allergies Allergy Verified 10/22/24 11:03 Vital Signs Vital Signs - 24 hr 10/22/24 11:13 10/22/24 14:26 10/22/24 20:00 Temperature 97.6 F 97.8 F Pulse Rate 86 78 Respiratory Rate 16 20 Blood Pressure 149/82 H 152/93 H Pulse Oximetry 98 100 Oxygen Delivery Room Air Room Air 10/22/24 20:49 10/23/24 06:00 Temperature 98.5 F 99.8 F H Pulse Rate 81 89 Respiratory Rate 18 16 Blood Pressure 140/84 130/76 Pulse Oximetry 98 98 Oxygen Delivery Exam 2 Const: General: comfortable and no acute distress Nutritional Appearance: o bese Orientation/consciousness: patient oriented x3 HENMT: Head: normocephalic and atraumatic Ears: hearing grossly normal bilaterally Mouth: Yes moist mucous membranes Eyes: General: appearance normal, both eyes and all related structures P upils: Equal, round and reactive pupils present Neck: Neck: normal visual inspection and full ROM Resp: Effort & Inspection: no respiratory distress Auscultation: clear to auscultation bilaterally Cardio: Rate: regular rate Rhythm: regular rhythm Heart sounds: S1 normal heart sound present and S2 normal heart sound present Peripheral pulses: Peripheral pulses 2+ throughout GI: Inspection: non-distended, no scars and no visible herniation GI Palp: Yes Soft to palpation, Yes Tenderness to palpation present (GI) (suprapubic and LLQ), Yes Guarding due to palpation present (GI) (LLQ), Yes No hepatosplenomegaly present and No Rebound tenderness present Percussion: Yes normal to percussion Auscultation: normal bowel sounds Skin: General skin exam: normal color Neuro: General: moves all extremities and no focal motor deficits Speech: n ormal speech Motor exam (neuro): 5/5 motor strength present throughout Extrem: General: normal to inspection and no edema Psych: Mental Status: mental status grossly normal Attitude: cooperative Insight: Good insight present (Psych) Judgement: Good judgement present (Psych) Results Labs 10/22/24 13:53 10/22/24 14:18 Labs: Abnormal lab results 10/22/24 10/22/24 Range/Units 13:53 14:28 WBC 16.2 H (4.5-10.0) K/mm3 MPV 10.9 H (7.4-10.4) fl Neut % (Auto) 75.1 H (45.5-73.1) % Lymph % (Auto) 13.2 L (18.3-44.2) % [place] % (Auto) 10.7 H (2.6-8.5) % [place] # (Auto) 1.7 H (0.1-0.6) K/mm3 Abs Immat Gran (auto) 0.05 H (0.00-0.031) K/mm3 Absolute Neuts (auto) 12.2 H (1.3-6.7) K/mm3 Alkaline Phosphatase 137 H (38-126) U/L Ur Specific [place] > 1.045 H (1.001-1.035) Diabetes panel 10/22/24 10/22/24 Range/Units 13:53 14:18 Sodium 138 (137-145) mmol/L Potassium 4.4 (3.4-5.0) mmol/L Chloride 104 (98-107) mmol/L Carbon Dioxide 29 (22-30) mmol/L BUN 12 (9-20) mg/dL Creatinine 0.90 0.90 (0.7-1.3) mg/dL Glucose 90 (65-110) mg/dL Calcium 9.2 (8.4-10.2) mg/dL AST 26 (17-59) U/L ALT 28 (6-50) U/L Alkaline Phosphatase 137 H (38-126) U/L Total Protein 8.0 (6.3-8.2) g/dL Albumin 4.6 (3.5-5.1) g/dL Calcium panel 10/22/24 Range/Units 13:53 Calcium 9.2 (8.4-10.2) mg/dL Albumin 4.6 (3.5-5.1) g/dL Pituitary panel 10/22/24 10/22/24 Range/Units 13:53 14:18 Sodium 138 (137-145) mmol/L Potassium 4.4 (3.4-5.0) mmol/L Chloride 104 (98-107) mmol/L Carbon Dioxide 29 (22-30) mmol/L BUN 12 (9-20) mg/dL Creatinine 0.90 0.90 (0.7-1.3) mg/dL Glucose 90 (65-110) mg/dL Calcium 9.2 (8.4-10.2) mg/dL Adrenal panel 10/22/24 10/22/24 Range/Units 13:53 14:18 Sodium 138 (137-145) mmol/L Potassium 4.4 (3.4-5.0) mmol/L Chloride 104 (98-107) mmol/L Carbon Dioxide 29 (22-30) mmol/L BUN 12 (9-20) mg/dL Creatinine 0.90 0.90 (0.7-1.3) mg/dL Glucose 90 (65-110) mg/dL Calcium 9.2 (8.4-10.2) mg/dL Total Bilirubin 0.5 (0.2-1.3) mg/dL AST 26 (17-59) U/L ALT 28 (6-50) U/L Alkaline Phosphatase 137 H (38-126) U/L Total Protein 8.0 (6.3-8.2) g/dL Albumin 4.6 (3.5-5.1) g/dL All other labs normal. Imaging Additional studies: ITS Impressions Abdomen/Pelvis CT 10/22/24 14:27 IMPRESSION: Contained perforation of the rectosigmoid colon from short segment diverticulitis. No drainable fluid collection. No gross, diffuse, free air.
[2024-10-23 09:32] LABS: Basophils Absolute Auto 0.1 K/mm3 (0.0-0.1); Basophils Percent Auto 0.4 % (0.2-1.2); Eosinophils Absolute Auto 0.1 K/mm3 (0-0.3); Eosinophils Percent Auto 0.4 % (0-4.4); Hematocrit 45.4 % (42.0-52.0); Hemoglobin 14.3 g/dL (14.0-18.0); Immature Granulocyte Percent A 0.6 % (0-0.5); Lymphocytes Absolute Auto 2.66 K/mm3 (0.9-3.2); Lymphocytes Percent Auto 14.8 % (18.3-44.2); Mean Corpuscular HGB Conc 31.5 g/dl (32-36); Mean Corpuscular Hemoglobin 27.8 pg (26-34); Mean Corpuscular Volume 88.3 fl (80-100); Mean Platelet Volume 10.8 fl (7.4-10.4); Monocytes Absolute Auto 2.1 K/mm3 (0.1-0.6); Monocytes Percent Auto 11.6 % (2.6-8.5); Neutrophils Percent Auto 72.2 % (45.5-73.1); Platelet Count Result 267 k/mm3 (150-375); Red Blood Count 5.14 M/mm3 (4.6-6.20); Red Cell Distribution Width 13.4 % (11.5-14.5)
[2024-10-23 09:50] LABS: Alanine Aminotransferase 23 U/L (6-50); Albumin Level 4.4 g/dL (3.5-5.1); Alkaline Phosphatase 115 U/L (38-126); Anion Gap 6 mmol/L (4-12); Aspartate Amino Transferase 27 U/L (17-59); Bilirubin,Total 1.6 mg/dL (0.2-1.3); Blood Urea Nitrogen 10 mg/dL (9-20); Calcium 8.9 mg/dL (8.4-10.2); Carbon Dioxide 28 mmol/L (22-30); Chloride 100 mmol/L (98-107); Estimated CRCL calculation 138 ml/min; Estimated Glomerular Filt Rate > 60; Glucose 99 mg/dL (65-110); Potassium 3.9 mmol/L (3.4-5.0); Sodium 134 mmol/L (137-145)
[2024-10-23 10:31] VITALS: O2SAT 97
[2024-10-23 14:00] VITALS: BP 139/73; PULSE 84; RESP 20; TEMP 36.6; O2SAT 100
[2024-10-23 18:55] VITALS: TEMP 38.1
[2024-10-23] MEDS: ACETAMINOPHEN 325 MG TABLET 650 MG PO (18:55)
[2024-10-23 19:50] VITALS: TEMP 37.2
[2024-10-23] MEDS: ATORVASTATIN 20 MG TABLET PO (20:55)
[2024-10-23 21:18] VITALS: BP 143/82; PULSE 93; RESP 18; TEMP 36.8; O2SAT 96
[2024-10-24 05:34] VITALS: BP 121/71; PULSE 95; RESP 18; TEMP 36.6; O2SAT 93
[2024-10-24] MEDS: PIPERACILLN/TAZ 3.375GM/NS50ML 3.375 GM/50 ML BAG IVPB ×3 (05:35→17:08)
[2024-10-24] MEDS: MORPHINE SULFATE (*CRX) 4 MG/ML INJ IV PUSH ×3 (06:19→22:04)
[2024-10-24 08:10] LABS: Basophils Absolute Auto 0.1 K/mm3 (0.0-0.1); Basophils Percent Auto 0.5 % (0.2-1.2); Eosinophils Absolute Auto 0.1 K/mm3 (0-0.3); Eosinophils Percent Auto 0.5 % (0-4.4); Hematocrit 39.7 % (42.0-52.0); Hemoglobin 12.8 g/dL (14.0-18.0); Immature Granulocyte Absolute 0.09 K/mm3 (0.00-0.031); Immature Granulocyte Percent A 0.6 % (0-0.5); Lymphocytes Absolute Auto 2.09 K/mm3 (0.9-3.2); Lymphocytes Percent Auto 13.7 % (18.3-44.2); Mean Corpuscular HGB Conc 32.2 g/dl (32-36); Mean Corpuscular Hemoglobin 27.9 pg (26-34); Mean Corpuscular Volume 86.7 fl (80-100); Mean Platelet Volume 11.2 fl (7.4-10.4); Monocytes Absolute Auto 1.7 K/mm3 (0.1-0.6); Monocytes Percent Auto 11.3 % (2.6-8.5); Neutrophils Absolute Auto 11.2 K/mm3 (1.3-6.7); Neutrophils Percent Auto 73.4 % (45.5-73.1); Platelet Count Result 217 k/mm3 (150-375); Red Blood Count 4.58 M/mm3 (4.6-6.20); Red Cell Distribution Width 13.2 % (11.5-14.5); White Blood Count 15.2 K/mm3 (4.5-10.0)
[2024-10-24 08:22] LABS: Alanine Aminotransferase 24 U/L (6-50); Albumin Level 3.8 g/dL (3.5-5.1); Alkaline Phosphatase 131 U/L (38-126); Anion Gap 2 mmol/L (4-12); Aspartate Amino Transferase 28 U/L (17-59); Bilirubin,Total 2.2 mg/dL (0.2-1.3); Blood Urea Nitrogen 7 mg/dL (9-20); Calcium 8.6 mg/dL (8.4-10.2); Carbon Dioxide 29 mmol/L (22-30); Chloride 101 mmol/L (98-107); Estimated CRCL calculation 154 ml/min; Estimated Glomerular Filt Rate > 60; Glucose 103 mg/dL (65-110); Potassium 3.8 mmol/L (3.4-5.0); Sodium 132 mmol/L (137-145)
[2024-10-24] MEDS: FLUoxetine HCL 20 MG CAPSULE PO (08:35)
--- NOTE | 2024-10-24 10:09 | P.PNIM_ITS ---
Progress Note: A&P Assessment and Plan (1) Diverticulosis: Code(s): K57.90 - Diverticulosis of intestine, part unspecified, without perforation or abscess without bleeding Status: Acute Assessment and Plan: - Blood cultures obtained on 10/22: pending - CT Abdomen/pelvis: Contained perforation of the rectosigmoid colon from short segment diverticulitis. No drainable fluid collection. No gross, diffuse, free air. - Diet: advanced to full liquid today. - Antibiotics: Zosyn started on 10/22 - Antiemetics - Analgesics - Monitor vital signs, I&Os, track stool output, watch for bloody stools, neuro status and patient is a fall risk - Monitor serum electrolytes and CBC. WBC improvin.0>15.2. Patient had a temp of 100.5 F overnight, current temp 97.8 F. - Surgery consulted, appreciate recommendations continue IV antibiotics and clear liquids for now. (2) Anxiety and depression: Code(s): F41.9 - Anxiety disorder, unspecified; F32.A - Depression, unspecified Status: Acute Assessment and Plan: Chronic, continue home medications - fluoxetine 20 mg daily - hydroxyzine 25 mg TID PRN (3) Dyslipidemia: Onset Date: ~07/2024 Code(s): E78.5 - Hyperlipidemia, unspecified Status: Acute Assessment and Plan: Chronic, continue home medication - atorvastatin 20 mg daily (4) Obesity (BMI 30-39.9): Code(s): E66.9 - Obesity, unspecified Status: Acute Assessment and Plan: - Recommended lifestyle changes and dietary modifications Subjective Date/time seen: 10/24/24 10:09 Interval history: Patient sitting up in bed with family at bedside. Patient reports abdominal pain is a 7 , constant, and a pressure. Patient denies shortness of breath, chest pain, nausea, or vomiting. Review of Systems Review of Systems: All systems reviewed & are unremarkable except as noted in HPI and below Exam Const: General: no acute distress and uncomfortable Resp: Auscultation: clear to auscultation bilaterally and diminished lung sounds Cardio: Rate: regular rate Rhythm: regular rhythm GI: GI Palp: Yes Soft to palpation and Yes Tenderness to palpation present (GI) (suprapubic and LLQ) Auscultation: normal bowel sounds : Other: Voiding without difficulty. Neuro: Speech: normal speech Extrem: General: no pedal edema Psych: Mental Status: mental status grossly normal Affect: normal affect Objective Data Vital Signs Vital Signs: Vital Signs - 24 hr 10/23/24 10:31 10/23/24 14:00 10/23/24 18:55 Temperature 97.8 F 100.5 F H Pulse Rate 84 Respiratory Rate 20 Blood Pressure 139/73 Pulse Oximetry 97 100 Oxygen Delivery Room Air 10/23/24 19:50 10/23/24 21:18 10/24/24 05:34 Temperature 99 F 98.2 F 97.8 F Pulse Rate 93 95 Respiratory Rate 18 18 Blood Pressure 143/82 H 121/71 Pulse Oximetry 96 93 Oxygen Delivery Intake/Output Intake/Output: Intake & Output 10/21/24 10/22/24 10/23/24 10/24/24 23:59 23:59 23:59 23:59 Intake Total 700 1970 450 Balance 700 1970 450 Meds/Results Medications: Active Medications Generic Name Dose Route Start Last Admin Trade Name Freq PRN Reason Stop Dose Admin Acetaminophen 650 mg 10/22/24 16:57 10/23/24 18:55 Acetaminophen 325 Mg Tablet PO 650 mg Q4H PRN Administration Mild Pain (1-3) or Fever Hydrocodone Bitart/Acetaminophen 1 tab 10/22/24 16:57 10/23/24 12:17 Hydrocodone/Acetaminophen (*Crx) 5-325 Mg Tablet PO 1 tab Q4H PRN Administration Pain Rated 4-6 Atorvastatin Calcium 20 mg 10/23/24 21:00 10/23/24 20:55 Atorvastatin 20 Mg Tablet PO 20 mg QHS ZARIA Administration Fluoxetine HCl 20 mg 10/23/24 09:00 10/24/24 08:35 Fluoxetine Hcl 20 Mg Capsule PO 20 mg DAILY ZARIA Administration Hydroxyzine HCl 25 mg 10/22/24 22:40 Hydroxyzine Hcl 25 Mg Tablet PO TID PRN anxiety Piperacillin/Tazobactam/Dextrose 3.375 gm in 50 mls @ 100 mls/hr 10/23/24 00:00 10/24/24 06:05 Zosyn 3.375 Gm/Ns 50 Ml IVPB Infused Q6H ZARIA Infusion Morphine Sulfate 4 mg 10/22/24 16:57 10/24/24 06:19 Morphine Sulfate (*Crx) 4 Mg/Ml Inj IV PUSH 4 mg Q2H PRN Administration Pain Rated 7-10 Ondansetron HCl 4 mg 10/22/24 16:57 10/22/24 19:43 Ondansetron Inj 4 Mg/2 Ml Vial IV PUSH 4 mg Q4H PRN Administration Nausea Radiology Results: ITS Impressions Abdomen/Pelvis CT 10/22/24 14:27 IMPRESSION: Contained perforation of the rectosigmoid colon from short segment diverticulitis. No drainable fluid collection. No gross, diffuse, free air. Labs Labs: Laboratory Results - last 24 hr 10/24/24 07:09 WBC 15.2 H RBC 4.58 L Hgb 12.8 L Hct 39.7 L MCV 86.7 MCH 27.9 MCHC 32.2 RDW 13.2 Plt Count 217 MPV 11.2 H Immature Gran % (Auto) 0.6 H Neut % (Auto) 73.4 H Lymph % (Auto) 13.7 L [place] % (Auto) 11.3 H Eos % (Auto) 0.5 Baso % (Auto) 0.5 Lymph # (Auto) 2.09 [place] # (Auto) 1.7 H Eos # (Auto) 0.1 Baso # (Auto) 0.1 Abs Immat Gran (auto) 0.09 H Absolute Neuts (auto) 11.2 H Absolute Nucleated RBC 0.000 Nucleated RBC % 0.0 Sodium 132 L Potassium 3.8 Chloride 101 Carbon Dioxide 29 Anion Gap 2 L BUN 7 L Creatinine 0.80 Estim Creat Clear Calc 154 Estimated GFR > 60 Glucose 103 Calcium 8.6 Total Bilirubin 2.2 H AST 28 ALT 24 Alkaline Phosphatase 131 H Total Protein 7.0 Albumin 3.8 Quality VTE Prophylaxis VTE prophylaxis: mechanical ordered
[2024-10-24] MEDS: HYDROcodone/acetaminophen (*CRX) 5-325 MG TABLET 1 TAB PO ×2 (12:08→18:29)
[2024-10-24 14:00] VITALS: BP 147/74; PULSE 85; RESP 18; TEMP 37; O2SAT 100
--- NOTE | 2024-10-24 14:53 | PM.PNGS ---
Progress Note: A&P Assessment and Plan (1) Perforation of sigmoid colon due to diverticulitis: Code(s): K57.20 - Diverticulitis of large intestine with perforation and abscess without bleeding Status: Acute Assessment and Plan: Improving. Advance to full liquids and continue IV antibiotics. Subjective Subjective Date/Time Seen: 10/24/24 14:53 Patient reports: feels better, still having pain (Suprapubic, less than before, mostly with movement), tolerating liquids well, voiding w/o difficulty, flatus, no bowel movement and afebrile Review of Systems Review of Systems: All systems reviewed & are unremarkable except as noted in HPI and below (HPI) Exam Const: General: cooperative, comfortable, alert and awake Nutritional Appearance: obese Orientation/consciousness: No confusion GI: Inspection: normal to inspection, no abdominal wall ecchymosis, non-distended and obesity GI Palp: Yes Soft to palpation and Yes Tenderness to palpation present (GI) (Suprapubic and left lower quadrant) Auscultation: normal bowel sounds Objective Data Vital Signs Vital Signs: Vital Signs - 24 hr 10/23/24 18:55 10/23/24 19:50 10/23/24 21:18 Temperature 38.1 C H 37.2 C 36.8 C Pulse Rate 93 Respiratory Rate 18 Blood Pressure 143/82 H Pulse Oximetry 96 Oxygen Delivery 10/24/24 05:34 10/24/24 08:00 10/24/24 14:00 Temperature 36.6 C 37.0 C Pulse Rate 95 85 Respiratory Rate 18 18 Blood Pressure 121/71 147/74 H Pulse Oximetry 93 100 Oxygen Delivery Room Air Intake/Output Intake/Output: Intake & Output 10/21/24 10/22/24 10/23/24 10/24/24 23:59 23:59 23:59 23:59 Intake Total 700 1970 690 Balance 700 1970 690 Meds/Results Medications: Active Medications Generic Name Dose Route Start Last Admin Trade Name Freq PRN Reason Stop Dose Admin Acetaminophen 650 mg 10/22/24 16:57 10/23/24 18:55 Acetaminophen 325 Mg Tablet PO 650 mg Q4H PRN Administration Mild Pain (1-3) or Fever Hydrocodone Bitart/Acetaminophen 1 tab 10/22/24 16:57 10/24/24 12:08 Hydrocodone/Acetaminophen (*Crx) 5-325 Mg Tablet PO 1 tab Q4H PRN Administration Pain Rated 4-6 Atorvastatin Calcium 20 mg 10/23/24 21:00 10/23/24 20:55 Atorvastatin 20 Mg Tablet PO 20 mg QHS ZARIA Administration Fluoxetine HCl 20 mg 10/23/24 09:00 10/24/24 08:35 Fluoxetine Hcl 20 Mg Capsule PO 20 mg DAILY ZARIA Administration Hydroxyzine HCl 25 mg 10/22/24 22:40 Hydroxyzine Hcl 25 Mg Tablet PO TID PRN anxiety Piperacillin/Tazobactam/Dextrose 3.375 gm in 50 mls @ 100 mls/hr 10/23/24 00:00 10/24/24 12:09 Zosyn 3.375 Gm/Ns 50 Ml IVPB 100 mls/hr Q6H ZARIA Administration Morphine Sulfate 4 mg 10/22/24 16:57 10/24/24 06:19 Morphine Sulfate (*Crx) 4 Mg/Ml Inj IV PUSH 4 mg Q2H PRN Administration Pain Rated 7-10 Ondansetron HCl 4 mg 10/22/24 16:57 10/22/24 19:43 Ondansetron Inj 4 Mg/2 Ml Vial IV PUSH 4 mg Q4H PRN Administration Nausea Radiology Results: ITS Impressions Abdomen/Pelvis CT 10/22/24 14:27 IMPRESSION: Contained perforation of the rectosigmoid colon from short segment diverticulitis. No drainable fluid collection. No gross, diffuse, free air. Labs Labs: Laboratory Results - last 24 hr 10/24/24 07:09 WBC 15.2 H RBC 4.58 L Hgb 12.8 L Hct 39.7 L MCV 86.7 MCH 27.9 MCHC 32.2 RDW 13.2 Plt Count 217 MPV 11.2 H Immature Gran % (Auto) 0.6 H Neut % (Auto) 73.4 H Lymph % (Auto) 13.7 L [place] % (Auto) 11.3 H Eos % (Auto) 0.5 Baso % (Auto) 0.5 Lymph # (Auto) 2.09 [place] # (Auto) 1.7 H Eos # (Auto) 0.1 Baso # (Auto) 0.1 Abs Immat Gran (auto) 0.09 H Absolute Neuts (auto) 11.2 H Absolute Nucleated RBC 0.000 Nucleated RBC % 0.0 Sodium 132 L Potassium 3.8 Chloride 101 Carbon Dioxide 29 Anion Gap 2 L BUN 7 L Creatinine 0.80 Estim Creat Clear Calc 154 Estimated GFR > 60 Glucose 103 Calcium 8.6 Total Bilirubin 2.2 H AST 28 ALT 24 Alkaline Phosphatase 131 H Total Protein 7.0 Albumin 3.8
[2024-10-24] MEDS: ATORVASTATIN 20 MG TABLET PO (20:29)
[2024-10-24 21:38] VITALS: BP 136/84; PULSE 88; RESP 16; TEMP 36.8; O2SAT 98
[2024-10-25] MEDS: PIPERACILLN/TAZ 3.375GM/NS50ML 3.375 GM/50 ML BAG IVPB ×5 (00:18→23:34)
[2024-10-25] MEDS: HYDROcodone/acetaminophen (*CRX) 5-325 MG TABLET 1 TAB PO ×5 (01:25→20:16)
[2024-10-25 04:49] VITALS: BP 131/80; PULSE 85; RESP 16; TEMP 36.1; O2SAT 98
[2024-10-25 06:59] LABS: Basophils Percent Auto 0.3 % (0.2-1.2); Eosinophils Absolute Auto 0.2 K/mm3 (0-0.3); Eosinophils Percent Auto 1.4 % (0-4.4); Hematocrit 40.8 % (42.0-52.0); Immature Granulocyte Absolute 0.09 K/mm3 (0.00-0.031); Immature Granulocyte Percent A 0.8 % (0-0.5); Lymphocytes Absolute Auto 2.38 K/mm3 (0.9-3.2); Lymphocytes Percent Auto 20.5 % (18.3-44.2); Mean Corpuscular HGB Conc 31.9 g/dl (32-36); Mean Corpuscular Hemoglobin 28.2 pg (26-34); Mean Corpuscular Volume 88.5 fl (80-100); Monocytes Absolute Auto 1.5 K/mm3 (0.1-0.6); Monocytes Percent Auto 12.5 % (2.6-8.5); Neutrophils Absolute Auto 7.5 K/mm3 (1.3-6.7); Neutrophils Percent Auto 64.5 % (45.5-73.1); Platelet Count Result 227 k/mm3 (150-375); Red Blood Count 4.61 M/mm3 (4.6-6.20); White Blood Count 11.6 K/mm3 (4.5-10.0)
[2024-10-25 07:07] LABS: Alanine Aminotransferase 30 U/L (6-50); Albumin Level 3.7 g/dL (3.5-5.1); Alkaline Phosphatase 147 U/L (38-126); Anion Gap 2 mmol/L (4-12); Aspartate Amino Transferase 32 U/L (17-59); Bilirubin,Total 1.7 mg/dL (0.2-1.3); Blood Urea Nitrogen 7 mg/dL (9-20); Calcium 8.8 mg/dL (8.4-10.2); Carbon Dioxide 30 mmol/L (22-30); Chloride 101 mmol/L (98-107); Estimated CRCL calculation 175 ml/min; Estimated Glomerular Filt Rate > 60; Glucose 96 mg/dL (65-110); Potassium 3.6 mmol/L (3.4-5.0); Sodium 133 mmol/L (137-145)
[2024-10-25] MEDS: FLUoxetine HCL 20 MG CAPSULE PO (08:30)
--- NOTE | 2024-10-25 10:19 | P.PNGS_ITS ---
Progress Note: A&P Assessment and Plan (1) Perforation of sigmoid colon due to diverticulitis: Code(s): K57.20 - Diverticulitis of large intestine with perforation and abscess without bleeding Status: Acute Assessment and Plan: slowly improving, will advance to low fiber diet, home c po abx if abeba diet Subjective Subjective Date/Time Seen: 10/25/24 10:19 Interval history: still c lower abd soreness that is slowly improving Review of Systems Review of Systems: All systems reviewed & are unremarkable except as noted in HPI and below Exam Const: General: cooperative, comfortable and no acute distress Resp: Auscultation: clear to auscultation bilaterally Cardio: Rate: regular rate Rhythm: regular rhythm GI: Inspection: normal to inspection, non-distended and obesity GI Palp: Yes abdominal tenderness and Yes Soft to palpation Objective Data Vital Signs Vital Signs: Vital Signs - 24 hr 10/24/24 14:00 10/24/24 20:00 10/24/24 21:38 Temperature 37.0 C 36.8 C Pulse Rate 85 88 Respiratory Rate 18 16 Blood Pressure 147/74 H 136/84 Pulse Oximetry 100 98 Oxygen Delivery Room Air 10/25/24 04:49 Temperature 36.1 C L Pulse Rate 85 Respiratory Rate 16 Blood Pressure 131/80 Pulse Oximetry 98 Oxygen Delivery Intake/Output Intake/Output: Intake & Output 10/22/24 10/23/24 10/24/24 10/25/24 23:59 23:59 23:59 23:59 Intake Total 700 1970 2370 550 Balance 700 1970 2370 550 Meds/Results Medications: Active Medications Generic Name Dose Route Start Last Admin Trade Name Freq PRN Reason Stop Dose Admin Acetaminophen 650 mg 10/22/24 16:57 10/23/24 18:55 Acetaminophen 325 Mg Tablet PO 650 mg Q4H PRN Administration Mild Pain (1-3) or Fever Hydrocodone Bitart/Acetaminophen 1 tab 10/22/24 16:57 10/25/24 08:30 Hydrocodone/Acetaminophen (*Crx) 5-325 Mg Tablet PO 1 tab Q4H PRN Administration Pain Rated 4-6 Atorvastatin Calcium 20 mg 10/23/24 21:00 10/24/24 20:29 Atorvastatin 20 Mg Tablet PO 20 mg QHS ZARIA Administration Fluoxetine HCl 20 mg 10/23/24 09:00 10/25/24 08:30 Fluoxetine Hcl 20 Mg Capsule PO 20 mg DAILY ZARIA Administration Hydroxyzine HCl 25 mg 10/22/24 22:40 Hydroxyzine Hcl 25 Mg Tablet PO TID PRN anxiety Piperacillin/Tazobactam/Dextrose 3.375 gm in 50 mls @ 100 mls/hr 10/23/24 00:00 10/25/24 07:55 Zosyn 3.375 Gm/Ns 50 Ml IVPB Infused Q6H ZARIA Infusion Morphine Sulfate 4 mg 10/22/24 16:57 10/24/24 22:04 Morphine Sulfate (*Crx) 4 Mg/Ml Inj IV PUSH 4 mg Q2H PRN Administration Pain Rated 7-10 Ondansetron HCl 4 mg 10/22/24 16:57 10/22/24 19:43 Ondansetron Inj 4 Mg/2 Ml Vial IV PUSH 4 mg Q4H PRN Administration Nausea Radiology Results: ITS Impressions Abdomen/Pelvis CT 10/22/24 14:27 IMPRESSION: Contained perforation of the rectosigmoid colon from short segment diverticulitis. No drainable fluid collection. No gross, diffuse, free air. Labs Labs: Laboratory Results - last 24 hr 10/25/24 06:37 WBC 11.6 H RBC 4.61 Hgb 13.0 L Hct 40.8 L MCV 88.5 MCH 28.2 MCHC 31.9 L RDW 13.0 Plt Count 227 MPV 11.0 H Immature Gran % (Auto) 0.8 H Neut % (Auto) 64.5 Lymph % (Auto) 20.5 [place] % (Auto) 12.5 H Eos % (Auto) 1.4 Baso % (Auto) 0.3 Lymph # (Auto) 2.38 [place] # (Auto) 1.5 H Eos # (Auto) 0.2 Baso # (Auto) 0.0 Abs Immat Gran (auto) 0.09 H Absolute Neuts (auto) 7.5 H Absolute Nucleated RBC 0.000 Nucleated RBC % 0.0 Sodium 133 L Potassium 3.6 Chloride 101 Carbon Dioxide 30 Anion Gap 2 L BUN 7 L Creatinine 0.70 Estim Creat Clear Calc 175 Estimated GFR > 60 Glucose 96 Calcium 8.8 Total Bilirubin 1.7 H AST 32 ALT 30 Alkaline Phosphatase 147 H Total Protein 7.0 Albumin 3.7
--- NOTE | 2024-10-25 10:59 | P.PNIM_ITS ---
Progress Note: A&P Assessment and Plan (1) Diverticulosis: Code(s): K57.90 - Diverticulosis of intestine, part unspecified, without perforation or abscess without bleeding Status: Acute Assessment and Plan: - Blood cultures obtained on 10/22: pending - CT Abdomen/pelvis: Contained perforation of the rectosigmoid colon from short segment diverticulitis. No drainable fluid collection. No gross, diffuse, free air. - Diet: advanced to low fiber diet. - Antibiotics: Zosyn started on 10/22 - Antiemetics - Analgesics - Monitor vital signs, I&Os, track stool output, watch for bloody stools, neuro status and patient is a fall risk - Monitor serum electrolytes and CBC. WBC improvin.0>15.2>11.6. Patient had a temp of 100.5 F overnight 10/23, current temp 98.6 F. - Surgery consulted, appreciate recommendations continue IV antibiotics and clear liquids for now. - Stock Transfer Clerk met with patient on 10/23 discussing low fiber and high fiber diet. Patient voiced understanding and denies any questions at this time. (2) Anxiety and depression: Code(s): F41.9 - Anxiety disorder, unspecified; F32.A - Depression, unspecified Status: Acute Assessment and Plan: Chronic, continue home medications - fluoxetine 20 mg daily - hydroxyzine 25 mg TID PRN (3) Dyslipidemia: Onset Date: ~07/2024 Code(s): E78.5 - Hyperlipidemia, unspecified Status: Acute Assessment and Plan: Chronic, continue home medication - atorvastatin 20 mg daily (4) Obesity (BMI 30-39.9): Code(s): E66.9 - Obesity, unspecified Status: Acute Assessment and Plan: - Recommended lifestyle changes and dietary modifications Subjective Date/time seen: 10/25/24 10:59 Interval history: Patient lying in bed with family at bedside. Patient reports abdominal pain is a 7-8 , constant, and a pressure. Patient denies shortness of breath, chest pain, nausea, or vomiting. Review of Systems Review of Systems: All systems reviewed & are unremarkable except as noted in HPI and below Exam Const: General: no acute distress and uncomfortable Eyes: Sclera: sclerae normal Resp: Effort & Inspection: normal respiratory effort Auscultation: clear to auscultation bilaterally Cardio: Rate: regular rate Rhythm: regular rhythm GI: GI Palp: Yes Soft to palpation and Yes Tenderness to palpation present (GI) (LLQ) Auscultation: normal bowel sounds Neuro: Speech: normal speech Extrem: General: no pedal edema Psych: Mental Status: mental status grossly normal Affect: normal affect Objective Data Vital Signs Vital Signs: Vital Signs - 24 hr 10/24/24 14:00 10/24/24 20:00 10/24/24 21:38 Temperature 98.6 F 98.3 F Pulse Rate 85 88 Respiratory Rate 18 16 Blood Pressure 147/74 H 136/84 Pulse Oximetry 100 98 Oxygen Delivery Room Air 10/25/24 04:49 10/25/24 08:30 Temperature 97.0 F L Pulse Rate 85 Respiratory Rate 16 Blood Pressure 131/80 Pulse Oximetry 98 Oxygen Delivery Room Air Intake/Output Intake/Output: Intake & Output 10/22/24 10/23/24 10/24/24 10/25/24 23:59 23:59 23:59 23:59 Intake Total 700 1969 2370 550 Balance 700 1969 2370 550 Meds/Results Medications: Active Medications Generic Name Dose Route Start Last Admin Trade Name Freq PRN Reason Stop Dose Admin Acetaminophen 650 mg 10/22/24 16:57 10/23/24 18:55 Acetaminophen 325 Mg Tablet PO 650 mg Q4H PRN Administration Mild Pain (1-3) or Fever Hydrocodone Bitart/Acetaminophen 1 tab 10/22/24 16:57 10/25/24 08:30 Hydrocodone/Acetaminophen (*Crx) 5-325 Mg Tablet PO 1 tab Q4H PRN Administration Pain Rated 4-6 Atorvastatin Calcium 20 mg 10/23/24 21:00 10/24/24 20:29 Atorvastatin 20 Mg Tablet PO 20 mg QHS ZARIA Administration Fluoxetine HCl 20 mg 10/23/24 09:00 10/25/24 08:30 Fluoxetine Hcl 20 Mg Capsule PO 20 mg DAILY ZARIA Administration Hydroxyzine HCl 25 mg 10/22/24 22:40 Hydroxyzine Hcl 25 Mg Tablet PO TID PRN anxiety Piperacillin/Tazobactam/Dextrose 3.375 gm in 50 mls @ 100 mls/hr 10/23/24 00:00 10/25/24 07:55 Zosyn 3.375 Gm/Ns 50 Ml IVPB Infused Q6H ZARIA Infusion Morphine Sulfate 4 mg 10/22/24 16:57 10/24/24 22:04 Morphine Sulfate (*Crx) 4 Mg/Ml Inj IV PUSH 4 mg Q2H PRN Administration Pain Rated 7-10 Ondansetron HCl 4 mg 10/22/24 16:57 10/22/24 19:43 Ondansetron Inj 4 Mg/2 Ml Vial IV PUSH 4 mg Q4H PRN Administration Nausea Radiology Results: ITS Impressions Abdomen/Pelvis CT 10/22/24 14:27 IMPRESSION: Contained perforation of the rectosigmoid colon from short segment diverticu litis. No drainable fluid collection. No gross, diffuse, free air. Labs Labs: Laboratory Results - last 24 hr 10/25/24 06:37 WBC 11.6 H RBC 4.61 Hgb 13.0 L Hct 40.8 L MCV 88.5 MCH 28.2 MCHC 31.9 L RDW 13.0 Plt Count 227 MPV 11.0 H Immature Gran % (Auto) 0.8 H Neut % (Auto) 64.5 Lymph % (Auto) 20.5 [place] % (Auto) 12.5 H Eos % (Auto) 1.4 Baso % (Auto) 0.3 Lymph # (Auto) 2.38 [place] # (Auto) 1.5 H Eos # (Auto) 0.2 Baso # (Auto) 0.0 Abs Immat Gran (auto) 0.09 H Absolute Neuts (auto) 7.5 H Absolute Nucleated RBC 0.000 Nucleated RBC % 0.0 Sodium 133 L Potassium 3.6 Chloride 101 Carbon Dioxide 30 Anion Gap 2 L BUN 7 L Creatinine 0.70 Estim Creat Clear Calc 175 Estimated GFR > 60 Glucose 96 Calcium 8.8 Total Bilirubin 1.7 H AST 32 ALT 30 Alkaline Phosphatase 147 H Total Protein 7.0 Albumin 3.7 Quality VTE Prophylaxis VTE prophylaxis: mechanical ordered
[2024-10-25 14:00] VITALS: BP 156/97; PULSE 89; RESP 18; TEMP 37; O2SAT 97
[2024-10-25] MEDS: ATORVASTATIN 20 MG TABLET PO (20:17)
[2024-10-25 20:21] VITALS: BP 151/80; PULSE 75; RESP 18; TEMP 36.5; O2SAT 100
[2024-10-25] MEDS: ACETAMINOPHEN 325 MG TABLET 650 MG PO (23:37)
[2024-10-26] MEDS: HYDROcodone/acetaminophen (*CRX) 5-325 MG TABLET 1 TAB PO ×3 (00:11→10:46)
[2024-10-26] MEDS: PIPERACILLN/TAZ 3.375GM/NS50ML 3.375 GM/50 ML BAG IVPB (05:40)
[2024-10-26 05:53] VITALS: BP 130/68; PULSE 65; RESP 16; TEMP 36.4; O2SAT 100
[2024-10-26 08:11] LABS: Basophils Absolute Auto 0.1 K/mm3 (0.0-0.1); Basophils Percent Auto 0.7 % (0.2-1.2); Eosinophils Absolute Auto 0.2 K/mm3 (0-0.3); Eosinophils Percent Auto 1.9 % (0-4.4); Hematocrit 39.7 % (42.0-52.0); Hemoglobin 12.7 g/dL (14.0-18.0); Immature Granulocyte Absolute 0.05 K/mm3 (0.00-0.031); Immature Granulocyte Percent A 0.6 % (0-0.5); Lymphocytes Absolute Auto 1.68 K/mm3 (0.9-3.2); Lymphocytes Percent Auto 19.7 % (18.3-44.2); Mean Corpuscular Hemoglobin 27.6 pg (26-34); Mean Corpuscular Volume 86.3 fl (80-100); Mean Platelet Volume 10.7 fl (7.4-10.4); Monocytes Absolute Auto 1.1 K/mm3 (0.1-0.6); Monocytes Percent Auto 13.2 % (2.6-8.5); Neutrophils Absolute Auto 5.4 K/mm3 (1.3-6.7); Neutrophils Percent Auto 63.9 % (45.5-73.1); Platelet Count Result 240 k/mm3 (150-375); Red Cell Distribution Width 12.8 % (11.5-14.5); White Blood Count 8.5 K/mm3 (4.5-10.0)
[2024-10-26 08:27] LABS: Alanine Aminotransferase 30 U/L (6-50); Albumin Level 3.6 g/dL (3.5-5.1); Alkaline Phosphatase 162 U/L (38-126); Anion Gap 2 mmol/L (4-12); Aspartate Amino Transferase 33 U/L (17-59); Bilirubin,Total 1.5 mg/dL (0.2-1.3); Blood Urea Nitrogen 8 mg/dL (9-20); Calcium 8.9 mg/dL (8.4-10.2); Carbon Dioxide 33 mmol/L (22-30); Chloride 102 mmol/L (98-107); Estimated CRCL calculation 175 ml/min; Estimated Glomerular Filt Rate > 60; Glucose 86 mg/dL (65-110); Potassium 3.8 mmol/L (3.4-5.0); Sodium 137 mmol/L (137-145)
[2024-10-26] MEDS: FLUoxetine HCL 20 MG CAPSULE PO (08:55)
--- NOTE | 2024-10-26 10:42 | PM.PNGS ---
Progress Note: A&P Assessment and Plan (1) Perforation of sigmoid colon due to diverticulitis: Code(s): K57.20 - Diverticulitis of large intestine with perforation and abscess without bleeding Status: Acute Assessment and Plan: doing well, ok to dc home from surgical standpoint c po abx, analgesia, low fiber diet, f/u 2 wks Subjective Subjective Date/Time Seen: 10/26/24 10:42 Interval history: feels better, pain controlled c po analgesia, abeba low fiber diet Review of Systems Review of Systems: All systems reviewed & are unremarkable except as noted in HPI and below Exam Const: General: cooperative, comfortable and no acute distress Resp: Auscultation: clear to auscultation bilaterally Cardio: Rate: regular rate Rhythm: regular rhythm GI: Inspection: normal to inspection and obesity GI Palp: Yes abdominal tenderness and Yes Soft to palpation Objective Data Vital Signs Vital Signs: Vital Signs - 24 hr 10/25/24 14:00 10/25/24 20:00 10/25/24 20:21 Temperature 37.0 C 36.5 C Pulse Rate 89 75 Respiratory Rate 18 18 Blood Pressure 156/97 H 151/80 H Pulse Oximetry 97 100 Oxygen Delivery Room Air 10/26/24 05:53 Temperature 36.4 C L Pulse Rate 65 Respiratory Rate 16 Blood Pressure 130/68 Pulse Oximetry 100 Oxygen Delivery Intake/Output Intake/Output: Intake & Output 10/23/24 10/24/24 10/25/24 10/26/24 23:59 23:59 23:59 23:59 Intake Total 1969 2370 2630 400 Balance 1969 2370 2630 400 Meds/Results Medications: Active Medications Generic Name Dose Route Start Last Admin Trade Name Freq PRN Reason Stop Dose Admin Acetaminophen 650 mg 10/22/24 16:57 10/25/24 23:37 Acetaminophen 325 Mg Tablet PO 650 mg Q4H PRN Administration Mild Pain (1-3) or Fever Hydrocodone Bitart/Acetaminophen 1 tab 10/22/24 16:57 10/26/24 05:43 Hydrocodone/Acetaminophen (*Crx) 5-325 Mg Tablet PO 1 tab Q4H PRN Administration Pain Rated 4-6 Atorvastatin Calcium 20 mg 10/23/24 21:00 10/25/24 20:17 Atorvastatin 20 Mg Tablet PO 20 mg QHS ZARIA Administration Fluoxetine HCl 20 mg 10/23/24 09:00 10/26/24 08:55 Fluoxetine Hcl 20 Mg Capsule PO 20 mg DAILY ZARIA Administration Hydroxyzine HCl 25 mg 10/22/24 22:40 Hydroxyzine Hcl 25 Mg Tablet PO TID PRN anxiety Levofloxacin 750 mg 10/26/24 12:00 Levofloxacin 750 Mg Tablet PO 11/01/24 09:01 DAILY ZARIA Metronidazole 500 mg 10/26/24 14:00 Metronidazole 500 Mg Tablet PO 11/01/24 22:01 Q8HR ZARIA Morphine Sulfate 4 mg 10/22/24 16:57 10/24/24 22:04 Morphine Sulfate (*Crx) 4 Mg/Ml Inj IV PUSH 4 mg Q2H PRN Administration Pain Rated 7-10 Ondansetron HCl 4 mg 10/22/24 16:57 10/22/24 19:43 Ondansetron Inj 4 Mg/2 Ml Vial IV PUSH 4 mg Q4H PRN Administration Nausea Radiology Results: ITS Impressions Abdomen/Pelvis CT 10/22/24 14:27 IMPRESSION: Contained perforation of the rectosigmoid colon from short segment diverticulitis. No drainable fluid collection. No gross, diffuse, free air. Labs Labs: Laboratory Results - last 24 hr 10/26/24 07:53 WBC 8.5 RBC 4.60 Hgb 12.7 L Hct 39.7 L MCV 86.3 MCH 27.6 MCHC 32.0 RDW 12.8 Plt Count 240 MPV 10.7 H Immature Gran % (Auto) 0.6 H Neut % (Auto) 63.9 Lymph % (Auto) 19.7 [place] % (Auto) 13.2 H Eos % (Auto) 1.9 Baso % (Auto) 0.7 Lymph # (Auto) 1.68 [place] # (Auto) 1.1 H Eos # (Auto) 0.2 Baso # (Auto) 0.1 Abs Immat Gran (auto) 0.05 H Absolute Neuts (auto) 5.4 Absolute Nucleated RBC 0.000 Nucleated RBC % 0.0 Sodium 137 Potassium 3.8 Chloride 102 Carbon Dioxide 33 H Anion Gap 2 L BUN 8 L Creatinine 0.70 Estim Creat Clear Calc 175 Estimated GFR > 60 Glucose 86 Calcium 8.9 Total Bilirubin 1.5 H AST 33 ALT 30 Alkaline Phosphatase 162 H Total Protein 8.0 Albumin 3.6
--- NOTE | 2024-10-26 11:50 | P.DS_ITS ---
DS: Admitting Diagnosis Discharge Date 10/26/2024 Admitting Diagnosis Abdominal pain DS: Discharge Diagnosis Discharge Diagnosis (1) Perforation of sigmoid colon due to diverticulitis: Code(s): K57.20 - Diverticulitis of large intestine with perforation and abscess without bleeding Status: Acute (2) Anxiety and depression: Code(s): F41.9 - Anxiety disorder, unspecified; F32.A - Depression, unspecified Status: Acute (3) Dyslipidemia: Onset Date: ~07/2024 Code(s): E78.5 - Hyperlipidemia, unspecified Status: Acute DS: Summary Hospital Course Hospital Course: CT Abdomen/pelvis: Contained perforation of the rectosigmoid colon from short segment diverticulitis. No drainable fluid collection. No gross, diffuse, free air. - Diet: advanced to low fiber diet. - Antibiotics: Zosyn started on 10/22 - Antiemetics - Analgesics - WBC improved: 18.0>15.2>11.6>8.5 - Surgery followed. - Pulp Mill Team Leader met with patient on 10/23 discussing low fiber and high fiber diet. Patient voiced understanding and denies any questions at this time. - Patient advanced to a low fiber diet and tolerated it well. - Patient switched to oral antibiotics. - Surgery will follow outpatient. Status at Discharge Functional status at discharge: independent ambulation Overall status at discharge: patient is progressing back to baseline Time Spent with Patient Time attestation: Total time spent providing and/or coordinating discharge services: Time spent: Greater than 30 minutes Exam Const: General: no acute distress and uncomfortable Other: Abdominal pain a 3 , constant, and pressure. Eyes: Sclera: sclerae normal Resp: Effort & Inspection: normal respiratory effort Auscultation: clear to auscultation bilaterally Cardio: Rate: regular rate Rhythm: regular rhythm GI: GI Palp: Yes Soft to palpation and Yes Tenderness to palpation present (GI) (LLQ) Auscultation: normal bowel sounds Skin: General skin exam: no rashes or lesions noted Neuro: General: gait normal Extrem: General: no pedal edema Psych: Mental Status: mental status grossly normal Affect: normal affect DS: Data Data Completed and Pending Labs on day of discharge: Labs from last 24 hours 10/26/24 07:53 WBC 8.5 RBC 4.60 Hgb 12.7 L Hct 39.7 L MCV 86.3 MCH 27.6 MCHC 32.0 RDW 12.8 Plt Count 240 MPV 10.7 H Immature Gran % (Auto) 0.6 H Neut % (Auto) 63.9 Lymph % (Auto) 19.7 [place] % (Auto) 13.2 H Eos % (Auto) 1.9 Baso % (Auto) 0.7 Lymph # (Auto) 1.68 [place] # (Auto) 1.1 H Eos # (Auto) 0.2 Baso # (Auto) 0.1 Abs Immat Gran (auto) 0.05 H Absolute Neuts (auto) 5.4 Absolute Nucleated RBC 0.000 Nucleated RBC % 0.0 Sodium 137 Potassium 3.8 Chloride 102 Carbon Dioxide 33 H Anion Gap 2 L BUN 8 L Creatinine 0.70 Estim Creat Clear Calc 175 Estimated GFR > 60 Glucose 86 Calcium 8.9 Total Bilirubin 1.5 H AST 33 ALT 30 Alkaline Phosphatase 162 H Total Protein 8.0 Albumin 3.6 Preliminary micro results at discharge 10/22/24 17:02 Blood Culture - Preliminary Blood 10/22/24 18:16 Blood Culture - Preliminary Blood Discharge Plan Discharge Attending physician on discharge: Tommie Sosa Consulting providers: Melissa Corrigan Discharging Clinician: Glo Hansen Anticipated Discharge Date/Time: 10/26/24 12:30 Patient Disposition: Home, Self-Care Activity: may shower and as tolerated Diet: low fiber Discharge Instructions: * Follow low fiber diet * Take all antibiotic doses Thank you for entrusting [facility] with your healthcare! Patient Instructions: Antibiotic Form, Diverticulitis (DC), Low Fiber Diet (GEN), Pain Management (DC) Patient Language: Norwegian Stand Alone Forms: General Discharge Information Follow-up/Referrals: Melissa Corrigan MD [Physician] - 2 Weeks Valerie Randall MD [Primary Care Provider] - 1 Week Discharge Medications: New ciprofloxacin HCl [Cipro] 500 mg tablet 500 mg PO Q12H Qty: 14 0RF metronidazole 500 mg tablet 500 mg PO Q12H Qty: 14 0RF hydrocodone-acetaminophen 5-325 mg tablet 1 tablet PO Q6H PRN (Reason: pain) Qty: 20 0RF Continued hydroxyzine HCl 25 mg tablet 25 mg PO TID PRN (Reason: anxiety) Qty: 90 0RF atorvastatin [Lipitor] 20 mg tablet 20 mg PO QHS Qty: 90 1RF ergocalciferol (vitamin D2) 1,250 mcg (50,000 unit) capsule 1,250 mcg PO WEEKLY Qty: 12 1RF Patient Comments: takes on tuesday fluoxetine 20 mg capsule 20 mg PO DAILY Qty: 90 0RF Date of admission: 10/22/24 18:50 Primary Care Provider: Valerie Randall Admitting Provider: Anusha Viveros Attending physician on admission: Anusha Viveros Condition: Stable Hospitalist MIPS Heart Failure (Exclusion) Patient has history of Heart Transplant or Left Ventricular Assistive Device?: No IF YES, STOP HERE Heart Failure (Qualifier) Patient has current or prior documentation of LVEF less than or equal to 40%, or mod/servere depressed LVSF?: No IF NO, STOP HERE
== END 2024-10-26 13:00 | disposition home or self-care (01) | DRG 392 ==
LOC: ANHED 17:22 → ANH3MEDSUR 18:42
PROVIDERS: Physician Assistant; Student in an Organized Health Care Education/Training Program; Admitting Provider Internal Medicine; Emergency Provider Emergency Medicine; PCP Family Medicine; Visit Provider Nurse Practitioner Family
DX: K57.20 Diverticulitis of large intestine with perforation and abscess without bleeding (principal); K59.00 Constipation, unspecified; F41.9 Anxiety disorder, unspecified; F32.A Depression, unspecified; E78.5 Hyperlipidemia, unspecified; E66.9 Obesity, unspecified; Z68.38 Body mass index [BMI] 38.0-38.9, adult
CPT/HCPCS: 36415; 74177; 80053; 81003; 83605; 83690; 85025; 87040; 96365; 96375; 99285; A9270; J2270; J2405; J2543; Q9967

== ENCOUNTER 2024-10-27 05:11 | Emergency (ER) | payer BC, SELFPAY ==
[2024-10-27 05:15] VITALS: BP 144/94; PULSE 106; RESP 15; TEMP 36.8; O2SAT 99
[2024-10-27 06:51] VITALS: BP 154/90; PULSE 97; TEMP 37; O2SAT 98
--- OUTSIDE RECORDS SUMMARY | 2024-11-03 05:45 | XMS_ITS | Encounter Summary ---
Author Organization [facility] Address [address] [place] [address] Care Team Providers Care Auto Electrician Name Role Phone Arron Baer MD Primary Care Provider [phone] Reason for Visit * Reason Comments Pain Knee Patient playing bask etball last , fell and injured his left knee. Seen at [place], xrays done. Right knee has nathan wrap. Encounter Details Date Type Department Care Team (Latest Contact Info) Description 10/14/2015 2:45 PM HOST AND HOSTESS - 10/14/2015 11:59 PM HOST AND HOSTESS Hospital Encounter [facility] Pediatrics - Orthopedics [address] [place] [address] Marla Parsons MD Discharge Disposition: Home or Self Care Social History Tobacco Use Types Packs/Day Years Used Date Smoking Tobacco: Never Assessed Sex and Gender Information Value Date Recorded Sex Assigned at Not on file Gender Identity Not on file Sexual Orientation Not on file documented as of this encounter Discharge Instructions * Patient Instructions* Armani Keenan PA-C - 10/14/2015 3:58 PM HOST AND HOSTESS ORTHOPAEDIC CLINIC DISCHARGE INSTRUCTIONS SHEET Follow Up: MRI is scheduled for: October 22, 2015 at 5 pm at [facility] -arrive at 4:30 pm. -bring photo ID and insurance card. Call [phone] for results. Use knee immobilizer for comfort. -may weight bear as tolerated in the knee immobilizer. Limit strenuous activity--no running, jumping, playground equipment, physical education activities,sports activities until released. School excuse: 10/14/2015 Tylenol and Ibuprofen (over the counter medication) may be used per instructions. If you have any questions or concerns in the interim, or if you need to schedule surgery for your child, you may contact our orthopedic office at . If you need to make a clinic appointment, please call . AND HOSTESS documented in this encounter Medications at Time of Discharge Medication Sig Dispensed Refills Start Date End Date hydrocodone-acetaminophe n (NORCO) 5-325 MG tabletIndications:Modera te to Moderately Severe Pain Take 1 Tab by mouth every 6 hours as needed for Pain Reasons: Moderate to Moderately Severe Pain 25 Tab 0 10/14/2015 ibuprofen (MOTRIN) 200 MG tablet Take by mouth every 6 hours as needed for Pain documented as of this encounter Progress Notes * Armani Keenan PA-C - 10/14/2015 4:13 PM CST PEDIATRIC ORTHOPAEDIC CLINIC NOTE NAME: Flakito Olivo DATE OF SERVICE: 10/14/2015 DATE: 1995 PCP: Arron Baer MD Chief Complaint Patient presents with ??? Pain Knee Patient playing basketball last , fell and injured his left knee. Seen at [place], xrays done. Right knee has nathan wrap. HISTORY: Flakito Olivo is a 19 y.o. 9 m.o. male who presents 5 day(s) status post a right leg injury. He reportedly fell while playing basketball and landed directly on the right knee. Flakito Olivo was seen at an outside hospital for xrays, and was treated with an NATHAN wrap, and presents for further evaluation. The patient rates his pain as a 8 out of 10. He states that he is taking 800 mg of ibuprofenevery 6-8 hrs and it is not helping with his pain. The patient denies new onset of numbness in his lower extremities. PAST MEDICAL HISTORY: Past Medical History Diagnosis Date ??? NEGATIVE PAST MEDICAL HISTORY - SEE PROBLEM LIST PAST SURGICAL HISTORY: Past Surgical History Procedure Laterality Date ??? Tympanostomy MEDICATIONS: Current outpatient prescriptions: hydrocodone-acetaminophen (NORCO) 5-325 MG tablet, Take 1 Tab by mouth every 6 hours as needed for Pain Reasons: Moderate to Moderately Severe Pain, Disp: 25 Tab, Rfl: 0; ibuprofen (MOTRIN) 200 MG tablet, Take by mouth every 6 hours as needed for Pain,Disp: , Rfl: ALLERGIES: Allergies as of 10/14/2015 ??? (No Known Allergies) IMMUNIZATIONS: Immunization status: stated as current, but no records available. SOCIAL HISTORY: Patient lives with his parents. he does attend school. FAMILY HISTORY: Negative for any genetic conditions affecting children. ROS: A 12 point review of systems was obtained today and is positive for what is stated above. PHYSICAL EXAMINATION: There were no vitals taken for this visit. General appearance: alert, cooperative, no distress. He has good head control. No rashes or abnormal dyspigmentation Extremities: The uninjured left lower extremity was examined and demonstrated normal skin, normal range of motion and alignment of all joint, normal motor, sensory and vascular examination, and was without pain. It was used for comparison when examining the injured right lower extremity. General appearance: no acute distress The examination was performed out of splint/cast Skin: normal Swelling: mild knee effusion noted Tenderness: severe, located throughout the anterior/medial/lateral aspect of his knee. Deformity: No ROM: limited by pain, he lacks last 5 degrees of extension at the knee, any attempt at flexion is too painful -extensor mechanism is intact. -ligamentous exam is difficult to assess due to pain and guarding Strength: limited by pain Gait: antalgic Neurological Exam: normal Vascular Exam: normal RADIOGRAPHS: AP and lateral X-rays of the right knee were taken at [facility] and assessed today. -Radiographic Assessment: The report only is available and indicates the exam is normal. ASSESSMENT: 1. Right knee injury, initial encounter PLAN: We recommend the patient go into a knee immobilizer today. We will get an MRI of the knee to further evaluate his pain. This is scheduled for 10/22/15 at [facility]. They will call our office for the results. The patient will stay out of PE/sports until further notice. Patient's weightbearing status will be WBAT in the brace. Further follow up will be determined after MRI. They will call in the interim with questions or concerns. Dr. Parsons prescribed Keno, 1 tab q 6 hrs PRN pain, #25, no refills. AND HOSTESS * Honey Bernard RN - 10/14/2015 3:06 PM CST Patient playing basketball last , fell and injured his left knee. Seen at [facility], xrays done. Right knee has nathan wrap. AND HOSTESS documented in this encounter Plan of Treatment Not on file documented as of this encounter Visit Diagnoses Diagnosis Right knee injury, initial encounter- Primary documented in this encounter Care Teams Auto Electrician Relationship Specialty Start Date End Date Arron Baer MD [address] [place] [address] PCP - General Pediatrics 10/14/15 documented as of this encounter
--- OUTSIDE RECORDS SUMMARY | 2024-11-03 05:45 | XMS_ITS | Encounter Summary ---
Author Organization [facility] Address [address] [place] [address] Care Team Providers Care Coater Carbon Paper Name Role Phone Arron Baer MD Primary Care Provider [phone] Reason for Visit * Reason Onset Date Comments Imaging Results 10/28/2015 Encounter Details Date Type Department Care Team (Late st Contact Info) Description 10/28/2015 Telephone [facility] Pediatrics - Orthopedics [address] [place], [place] [id number] Armani Keenan PA-C [address] [place] [address] Imaging Results Social History Tobacco Use Types Packs/Day Years Used Date Smoking Tobacco: Never Assessed Sex and Gender Information Value Date Recorded Sex Assigned at Not on file Gender Identity Not on file Sexual Orientation Not on file documented as of this encounter Miscellaneous Notes * Telephone Encounter - Armani Keenan PA-C - 10/28/2015 9:00 AM CST I spoke with Flakito's mother regarding MRI right knee done on 10/22/15 at [facility]. MRI shows partial PCL tear with mild patellar tendinopathy. She states that he is still having a lot of pain and difficulty moving his knee. Recommend follow up with Dr. Myers for further evaluation. She was advised to get MRI on a disk and bring it to appointment. A note was faxed to school for PE, sports,etc. She requested refill on Gary, however I recommended trying Aleve at this point. They will schedule appt with Dr. Myers, and call in interim with any questions/concerns. E EXAMINER documented in this encounter Plan of Treatment Not on file documented as of this encounter Visit Diagnoses Not on filedocumented in this encounter Care Teams Coater Carbon Paper Relationship Specialty Start Date End Date Arron Baer MD [address] [place] [address] PCP - General Pediatrics 10/14/15 documented as of this encounter
--- OUTSIDE RECORDS SUMMARY | 2024-11-03 05:45 | XMS_ITS | Encounter Summary ---
Author Organization [facility] Address [address] [place] [address] Care Team Providers Care Paper Bags Sewing Machine Operator Name Role Phone Arron Baer MD Primary Care Provider [phone] Reason for Visit * Reason Comments Follow-up Right knee injury Encounter Details Date Type Department Care Team (Late st Contact Info) Description 11/07/2015 2:30 PM PATENT LEGAL ASSISTANT - 11/07/2015 11:59 PM PATENT LEGAL ASSISTANT Hospital Encounter [facility] Pediatrics - Orthopedics [address] [place] [address] Jose Myers MD [address] [facility] [place] [address] Discharge Disposition: Home or Self Care Social History Tobacco Use Types Packs/Day Years Used Date Smoking Tobacco: Never Alcohol Use Standard Drinks/Week Comments No 0 (1 standard drink = 0.6 oz pur e alcohol) Sex and Gender Information Value Date Recorded Sex Assigned at Not on file Gender Identity Not on file Sexual Orientation Not on file documented as of this encounter Discharge Instructions * Patient Instructions* Jose Myers MD - 11/07/2015 4:05 PM PATENT LEGAL ASSISTANT Images from the original note were not included. Adult and Pediatric Sports Medicine Flakito Olivo 11/07/2015 Thank you for coming in to see us today for your right knee partial PCL tear. This is a school excuse note for today. We recommend that you try the following for your injury: icing and anti-inflammatory medications No weight lifting/PE/sports for the next 3 weeks, may return after that time Follow up PRN Please call our clinic to make an appointment if your symptoms are not improving, or if something about your condition significantly changes. [facility] office contact information: [facility] [address] [place]. [address] [facility] 2nd Floor, [address] [address] [facility] [address] [place] [address] [facility] [address], [place] [address] Please contact Chang Sharif (clinical nurse specialist) at or email: [email or web address] if you have any further questions or concerns. Sincerely, Jose Myers MD NT LEGAL ASSISTANT documented in this encounter Medications at Time [...] as of this encounter Progress Notes * Jose Myers MD - 11/07/2015 4:16 PM CST Images from the original note were not included. Jose Myers MD ORTHOPAEDIC SPORTS MEDICINE [address] [place] [address] Dept: [phone] Arron Baer MD ; Today we had the pleasure of seeing Flakito Olivo in [facility] Pediatric Orthopaedic Sports Medicine [facility] at [facility] for evaluation of his right knee injury. Flakito Olivo is a 19 y.o. male who was tripped at school about 3 weeks ago, sustaining an injury to his right knee. He was subsequently seen in an OSH ER where he had an MRI, which is available for review today. His pain is mainly posterior, and he has been using a knee immobilizer with some relief. The symptoms are activity-related and improved with rest. No fevers, chills, numbness, paresthesias or gross motor weakness. They have tried icing and anti- inflammatory medications for their symptoms. SANE Score (0-100): 30 Medications Current Outpatient Prescriptions on File Prior to Encounter Medication Sig Dispense Refill ??? ibuprofen (MOTRIN) 200 MG tablet Take by mouth every 6 hours as needed for Pain ??? hydrocodone-acetaminophen (NORCO) 5-325 MG tablet Take 1 Tab by mouth every 6 hours as needed for Pain Reasons: Moderate to Moderately Severe Pain 25 Tab 0 No current facility-administered medications on file prior to encounter. Allergies as of 11/07/2015 ??? (No Known Allergies) Past Medical History Diagnosis Date ??? NEGATIVE PAST MEDICAL HISTORY - SEE PROBLEM LIST Past Surgical History Procedure Laterality Date ??? Tympanostomy 15 Point review of systems was otherwise negative as reviewed today. Social History Occupational History ??? Not on file. Social History Main Topics ??? Smoking status: Never Smoker ??? Smokeless tobacco: Not on file ??? Alcohol Use: No ??? Drug Use: No ??? Sexual Activity: Not on file Family History No family history on file. Physical Exam: The patient is awake, alert, oriented and they are pleasant to speak with. There is no pain with rotation of the right or left hip. There is a negative straight leg raise bilaterally. Gait is normal.Evaluation of the uninjured left knee noted no skin lesions, neurovascularly intact. There is no ten derness/swelling/deformity. Ligamentously stable. Full range of motion. Quadriceps strength is 5/5. The right knee is neurovascularly intact with no active skin lesions. There is no effusion. There is tenderness of the popliteal fossa. Range of motion is 0 degrees of extension and 100 degrees of flexion. Ventura is negative. Posterior drawer with solid endpoint. Quad strength is 5/5. There is no varus laxity. There is no valgus laxity. There is no posterior sag. McMurrays test is negative. The extensor mechanism is intact. The patellar tracks well. Patellar apprehension test is negative. Testing for generalized ligamentous laxity is negative Imaging: knee MRI images reviewed by me is positive for a partial tear in the PCL, the main substance of theligament appears to be intact. No meniscal or ACL pathology. Impression: right knee partial PCL tear Plan: We recommended that they try the following to treat their injury: icing, physical therapy exercisesand anti-inflammatory medications. PlayMaker brace given today PT script given Follow up PRN Please do not hesitate to contact me with questions regarding him or any other patient in the future. Our clinical nurse, Chang Sharif, can be reached at and by email at [email or web address]. My personal email is [email or web address]. Sincerely, Jose Myers MD NT LEGAL ASSISTANT documented in this encounter Plan of Treatment Not on file documented as of this encounter Visit Diagnoses Diagnosis Left knee injury, initial encounter- Primary documented in this encounter Care Teams Paper Bags Sewing Machine Operator Relationship Specialty Start Date End Date Arron Baer MD [address] [place] [address] PCP - General Pediatrics 10/14/15 documented as of this encounter
--- OUTSIDE RECORDS SUMMARY | 2024-11-03 05:45 | XMS_ITS | Referral Summary ---
Author Organization [facility] [employer] Address [address] [place] [address] Care Team Providers Care Durable Medical Equipment Technician Name Role Phone Arron Baer MD Primary Care Provider [phone] Source Comments [facility],non-owned Affiliates and Associated Physician Practices is amultiple site organization consisting of ambulatory clinics and hospital sitesin [place], [place], [place] and [place]. This disclosure is being madepursuant to the Care Everywhere program and may not contain all information available regarding this patient. Last updated 18.[facility] [employer] Allergies No known active allergies Medications * Be aware that medications may not be up to date on this document. Alwaysverify current medications with the patient. Medication Sig Dispensed Refills Start Date End Date Status ibuprofen (MOTRIN) 200 MG tablet Take by mouth every 6 hours as needed for Pain Active hydrocodone-acetamin ophen (NORCO) 5-325 MG tabletIndications:Mo derate to Moderately Severe Pain Take 1 Tab by mouth every 6 hours as needed for Pain Reasons: Moderate to Moderately Severe Pain 25 Tab 0 10/14/2015 Active Active Problems Problem Noted Date Diagnosed Date Left knee injury 10/14/2015 Social History Tobacco Use Types Packs/Day Years Used Date Smoking Tobacco: Never Alcohol Use Standard Drinks/Week Comments No 0 (1 standard drink = 0.6 oz pur e alcohol) Sex and Gender Information Value Date Recorded Sex Assigned at Not on file Gender Identity Not on file Sexual Orientation Not on file Plan of Treatment Not on file Care Teams Durable Medical Equipment Technician Relationship Specialty Start Date End Date Arron Baer MD [address] [place] [address] PCP - General Pediatrics 10/14/15
--- OUTSIDE RECORDS SUMMARY | 2024-11-03 05:45 | XMS_ITS | Patient Health Summary ---
Author Organization [facility] Address [address] [place] [address] Care Team Providers Care Measurement Advisor Name Role Phone Arron Baer MD Primary Care Provider [phone] Note from [facility],non-owned Affiliates and Associated Physician Practices is amultiple site organization consisting of ambulatory clinics and hospital sitesin [place], [place], [place] and [place]. This disclosure is being madepursuant to the Care Everywhere program and may not contain all information available regarding this patient. Last updated 18.[facility] [employer] Allergies No known active allergies Medications * Be aware that medications may not be up to date on this document. Alwaysverify current medications with the patient. * ibuprofen (MOTRIN) 200 MG tablet Take by mouth every 6 hours as needed for Pain * hydrocodone-acetaminophen (NORCO) 5-325 MG tablet(Started 10/14/2015) Take 1 Tab by mouth every 6 hours as needed for Pain Reasons: Moderate to Moderately Severe Pain Active Problems Problem Noted Date Diagnosed Date Left knee injury 10/14/2015 Social History Tobacco Use Types Packs/Day Years Used Date Smoking Tobacco: Never Alcohol Use Standard Drinks/Week Comments No 0 (1 standard drink = 0.6 oz pur e alcohol) Sex and Gender Information Value Date Recorded Sex Assigned at Not on file Gender Identity Not on file Sexual Orientation Not on file Care Teams Measurement Advisor Relationship Specialty Start Date End Date Arron Baer MD [address] [place] [address] PCP - General Pediatrics 10/14/15
--- OUTSIDE RECORDS SUMMARY | 2024-11-03 05:45 | XMS_ITS | Clinical Summary ---
Author Organization [facility] [employer] Address [address] [place] [address] Care Team Providers Care Meteorology Professor Name Role Phone Arrno Baer MD Primary Care Provider [phone] Source Comments [facility],non-owned Affiliates and Associated Physician Practices is amultiple site organization consisting of ambulatory clinics and hospital sitesin [place], [place], [place] and [place]. This disclosure is being madepursuant to the Care Everywhere program and may not contain all information available regarding this patient. Last updated 18.[facility] [employer] Allergies No known active allergies Medications * [...] Orientation Not on file Plan of Treatment Health Maintenance Due Date Last Done Comments HIV SCREENING 2012 HPV VACCINE (1 - Male 3-dose series) 2012 HEPATITIS C SCREENING 12/20/2015 DTAP/TDAP/TD VACCINES (1 - Tdap) 2016 HEPATITIS B VACCINE (1 of 3 - 19+ 3-dose series) 2016 DEPRESSION SCREENING 10/24/2023 COVID-19 VACCINE (1 - 2023-2 5 season) 2024 INFLUENZA VACCINE (#1) 2024 ZOSTER VACCINE (1 of 2) 12/25/2047 HIB VACCINE Aged Out No longer eligi ble based on patient's age to complete this topic MENINGOCOCCAL VACCINE Aged Out No jovanny meghan eligible based on patient's age to complete this topic PNEUMOCOCCAL VACCINE Aged Out No long er eligible based on patient's age to complete this topic Care Teams Meteorology Professor Relationship Specialty Start Date End Date Arron Baer MD [address] [place] [id number] PCP - General Pediatrics 10/14/15
--- OUTSIDE RECORDS SUMMARY | 2024-11-03 06:48 | XMS_ITS | Encounter Summary ---
Author Organization [facility] Address [address] [place] [address] Care Team Providers Care Magnetometer Operator Name Role Phone Arron Baer MD Primary Care Provider Reason for Visit * Reason Comments Follow-up Right knee injury Encounter Details Date Type Department Care Team (Late st Contact Info) Description 11/07/2015 2:30 PM GROUP SOCIAL WORKER - 11/07/2015 11:59 PM GROUP SOCIAL WORKER Hospital Encounter [facility] Pediatrics - Orthopedics [address] [place] [address] Jose Myers MD [address] [facility] [place] [address] Discharge Disposition: Home or Self Care Social [...] Jose Myers MD - 11/07/2015 4:05 PM GROUP SOCIAL WORKER Images from the original note were not [...] significantly changes. [facility] office contact information: [facility] [address] [place]. [address] [facility] [address] [facility] [address] [address] [facility] [address] [place] [address] [facility] [address] [facility], [place] [address] Please contact Chang Sharif (clinical nurse specialist) at or email: [email or web address] if you have any further questions or concerns. Sincerely, Jose Myers MD P SOCIAL WORKER documented in this encounter Medications at Time [...] included. Jose Myers MD ORTHOPAEDIC SPORTS MEDICINE [address] [place] [address] Dept: [phone] Arron Baer MD ; Today we had the pleasure of seeing Flakito Olivo in [facility]opa[facility] at [facility] for evaluation of his right knee [...] be reached at and by email at [email or web address]. My personal email is [email or web address]. Sincerely, Jose Myers MD P SOCIAL WORKER documented in this encounter Plan of Treatment Not on file documented as of this encounter Visit Diagnoses Diagnosis Left knee injury, initial encounter- Primary documented in this encounter Care Teams Magnetometer Operator Relationship Specialty Start Date End Date Arron Baer MD [address] [place] [address] PCP - General Pediatrics 10/14/15 documented as of this encounter
--- OUTSIDE RECORDS SUMMARY | 2024-11-03 06:48 | XMS_ITS | Encounter Summary ---
Author Organization [facility] Address [address] [place] [address] Care Team Providers Care Chamber Magistrate Name Role Phone Arron Baer MD Primary Care Provider [phone] Reason for Visit * Reason Onset Date Comments Imaging Results 10/28/2015 Encounter Details Date Type Department Care Team (Late st Contact Info) Description 10/28/2015 Telephone [facility] Pediatric[facility] - Orthopedics [address] [place] [id number] Armani Keenan PA-C [address] [place] [id number] Imaging Results Social History Tobacco Use Types [...] MRI right knee done on 10/22/15 at [facility]. MRI shows partial PCL tear with mild patellar tendinopathy. She states that he is still having a lot of pain and difficulty moving his knee. Recommend follow up with Dr. Myers for further evaluation. She was advised to get MRI on a disk and bring it to appointment. A note was faxed to school for PE, sports,etc. She requested refill on [place], however I recommended trying Aleve at this point. They will schedule appt with Dr. Myers, and call in interim with any questions/concerns. AL SECURITY BENEFITS INTERVIEWER documented in this encounter Plan of Treatment Not on file documented as of this encounter Visit Diagnoses Not on filedocumented in this encounter Care Teams Chamber Magistrate Relationship Specialty Start Date End Date Arron Baer MD [address] [place] [address] PCP - General Pediatrics 10/14/15 documented as of this encounter
--- OUTSIDE RECORDS SUMMARY | 2024-11-03 06:48 | XMS_ITS | Patient Health Summary ---
Author Organization [facility] Address [address] [place] [address] Care Team Providers Care Repair Technician Name Role Phone Arron Baer MD Primary Care Provider [phone] Note from [facility],non-owned Affiliates and Associated Physician Practices is amultiple site organization consisting of ambulatory clinics and hospital sitesin [place], [place], [place] and [place]. This disclosure is being madepursuant to the Care Everywhere program and may not contain all information available regarding this patient. Last updated 18.[facility] [employer] Allergies No known active allergies Medications * [...] Sexual Orientation Not on file Care Teams Repair Technician Relationship Specialty Start Date End Date Arron Baer MD [address] [place] [address] PCP - General Pediatrics 10/14/15
--- OUTSIDE RECORDS SUMMARY | 2024-11-03 06:48 | XMS_ITS | Encounter Summary ---
Author Organization [facility] Address [address] [place] [address] Care Team Providers Care Back Up Worker Name Role Phone Arron Baer MD Primary Care Provider [phone] Reason for Visit * Reason Comments Pain Knee Patient playing bask etball last , fell and injured his left knee. Seen at [place], xrays done. Right knee has nathan wrap. Encounter Details Date Type Department Care Team (Latest Contact Info) Description 10/14/2015 2:45 PM BURIAL NEEDS SALESPERSON - 10/14/2015 11:59 PM BURIAL NEEDS SALESPERSON Hospital Encounter [facility] [address] [place] [address] Marla Parsons MD Discharge Disposition: Home or Self Care Social History Tobacco Use Types Packs/Day Years Used Date Smoking Tobacco: Never Assessed Sex and Gender Information Value Date Recorded Sex Assigned at Not on file Gender Identity Not on file Sexual Orientation Not on file documented as of this encounter Discharge Instructions * Patient Instructions* Armani Keenan PA-C - 10/14/2015 3:58 PM BURIAL NEEDS SALESPERSON [facility] DISCHARGE INSTRUCTIONS SHEET Follow Up: MRI is scheduled for: October 22, 2015 at 5 pm at [facility] -arrive at 4:30 pm. -bring photo ID and insurance card. Call [phone] for results. Use knee immobilizer for comfort. [...] make a clinic appointment, please call . AL NEEDS SALESPERSON documented in this encounter Medications at Time [...] and injured his left knee. Seen at [place], xrays done. Right knee has nathan wrap. [...] of the right knee were taken at [facility] and assessed today. -Radiographic Assessment: The report only is available and indicates the exam is normal. ASSESSMENT: 1. Right knee injury, initial encounter PLAN: We recommend the patient go into a knee immobilizer today. We will get an MRI of the knee to further evaluate his pain. This is scheduled for 10/22/15 at [facility]. They will call our office for the results. The patient will stay out of PE/sports until further notice. Patient's weightbearing status will be WBAT in the brace. Further follow up will be determined after MRI. They will call in the interim with questions or concerns. Dr. Parsons prescribed [place], 1 tab q 6 hrs PRN pain, #25, no refills. AL NEEDS SALESPERSON * Honey Bernrad RN - 10/14/2015 3:06 PM CST Patient playing basketball last , fell and injured his left knee. Seen at [place], xrays done. Right knee has nathan wrap. AL NEEDS SALESPERSON documented in this encounter Plan of Treatment Not on file documented as of this encounter Visit Diagnoses Diagnosis Right knee injury, initial encounter- Primary documented in this encounter Care Teams Back Up Worker Relationship Specialty Start Date End Date Arron Baer MD [address] [place] [address] PCP - General Pediatrics 10/14/15 documented as of this encounter
--- OUTSIDE RECORDS SUMMARY | 2024-11-03 06:48 | XMS_ITS | Clinical Summary ---
Author Organization [facility] Address [address] [place] [address] Care Team Providers Care Single Corner Cutter Name Role Phone Arron Baer MD Primary Care Provider [phone] Source Comments [facility],non-owned Affiliates and Associated Physician Practices is amultiple site organization consisting of ambulatory clinics and hospital sitesin [place], [place], [place] and [place]. This disclosure is being madepursuant to the Care Everywhere program and may not contain all information available regarding this patient. Last updated 18.[facility] Allergies No known active allergies Medications * [...] age to complete this topic Care Teams Single Corner Cutter Relationship Specialty Start Date End Date Arron Baer MD [address] [place] [id number] PCP - General Pediatrics 10/14/15
--- OUTSIDE RECORDS SUMMARY | 2024-11-03 06:48 | XMS_ITS | Referral Summary ---
Author Organization [facility] Address [address] [place] [address] Care Team Providers Care Firestopper Technician Name Role Phone Arron Baer MD Primary Care Provider Source Comments [facility],non-owned Affiliates and Associated Physician Practices is amultiple site organization consisting of ambulatory clinics and hospital sitesin [place], [place], [place] and [place]. This disclosure is being madepursuant to the Care Everywhere program and may not contain all information available regarding this patient. Last updated 18.[facility] Allergies No known active allergies Medications * [...] of Treatment Not on file Care Teams Firestopper Technician Relationship Specialty Start Date End Date Arron Baer MD [address] [place] [address] PCP - General Pediatrics 10/14/15
== END 2024-10-27 07:46 | disposition left against medical advice (07) ==
PROVIDERS: PCP Family Medicine
DX: R10.9 Unspecified abdominal pain (principal)
CPT/HCPCS: 99199